=== PATIENT | male | born 1975 | race Caucasian/White ===

== ENCOUNTER 2018-02-09 05:28 | Emergency (ER) | payer BC ==
[2018-02-09 05:59] LABS: Urine Blood NEGATIVE (NEG); Urine Glucose NEGATIVE (NEG); Urine Protein 1+ (NEG)
[2018-02-09 06:38] LABS: Absolute Lymphocytes (CBC) 0.7 K/uL (0.7-4.9); Absolute Monocytes 0.1 K/uL (0.1-1.3); Absolute Neutrophil 6.8 K/uL (1.8-8.0); Basophils % 0.3 % (0-1.3); Eosinophils % 0.1 % (0-4.4); Hematocrit 54.2 % (39.6-49.0); Lymphocytes % 9.1 % (15.3-44.8); MCH 28.7 pg (27.0-35.0); MCV 85.3 fL (80-100); MPV 8.7 fL (7.6-11.3); Monocytes % 1.1 % (3.3-12.3); RBC Red Blood Cell Count 6.35 M/uL (4.33-5.43)
[2018-02-09 06:43] LABS: Protime INR 1.09
[2018-02-09 06:53] LABS: Albumin 4.6 g/dL (3.2-5.5); Bilirubin Direct 0.1 mg/dL (0-0.2); Bilirubin Total 0.8 mg/dL (0.3-1.2); Magnesium 1.7 mg/dL (1.8-2.5); Protein, Total 7.8 g/dL (6.0-8.3)
[2018-02-09 06:57] LABS: CKMB Creatine Kinase MB 1.2 ng/ml (0.3-4.0)
[2018-02-09] MEDS ORDERED: NA CHLORIDE 0.9% 1,000 ML ONE (07:08)
[2018-02-09 07:10] LABS: Potassium 2.9 mEq/L (3.6-5.0)
[2018-02-09] MEDS ORDERED: MAGNESIUM SULFATE 1 gm IVPB 1 GM/100 ML BAG IV ONE (07:22)
[2018-02-09 07:28] LABS: Barbiturates NEGATIVE; Benzodiazepines NEGATIVE; Cocaine NEGATIVE; METHAMPHETAM NEGATIVE; Opiates NEGATIVE; Phencyclidine NEGATIVE; THC Cannibis NEGATIVE
--- NOTE | 2018-02-09 07:54 | RAD REPORT ---
EXAM DESCRIPTION: Eliana Single View02/09/2018 6:15 am CLINICAL HISTORY: Chest pain COMPARISON: none FINDINGS: The lungs appear clear of acute infiltrate. The heart is normal size IMPRESSION: No acute abnormalities displayed
[2018-02-09] MEDS ORDERED: NS KCL 20MEQ 1,000 ML IV ONE (07:59)
[2018-02-09] MEDS ORDERED: POTASSIUM 25 MEQ EFFERV TAB ONE (07:59)
--- NOTE | 2018-02-09 08:16 | RAD REPORT ---
EXAM DESCRIPTION: CT - Head Brain Wo Cont - 02/09/2018 6:51 am CLINICAL HISTORY: Alteration of consciousness/leg numbness/pain COMPARISON: None. TECHNIQUE: Computed axial tomography of the head was obtained. IV contrast was not requested. All CT scans are performed using dose optimization technique as appropriate and may include automated exposure control or mA/KV adjustment according to patient size. FINDINGS: An intracranial bleed is not seen . The ventricles are normal in caliber. No extra-axial fluid collection is noted. Fluid within the sinuses/ mastoids is not seen. IMPRESSION: No acute intracranial abnormality is seen. If patient's symptoms persist MRI of the bra in would be recommended.
[2018-02-09 08:37] LABS: Blood Morphology Comment NOT SEEN (NOT SEEN); Platelet Estimate ADEQ; Platelets, Giant FEW; Urine White Blood Cell Casts OK
[2018-02-09] MEDS ORDERED: ACETAMINOPHEN 500 MG TAB ONE (09:51)
[2018-02-09 11:36] LABS: Hematocrit 52.5 % (39.6-49.0); MCH 28.6 pg (27.0-35.0); MPV 8.7 fL (7.6-11.3); RBC Red Blood Cell Count 6.17 M/uL (4.33-5.43)
[2018-02-09 11:58] LABS: BUN Blood Urea Nitrogen 8 mg/dL (6-20); Bicarbonate 24 mEq/L (21-31); Glomerular Filtration Rate > 90 mL/min (=/>90); Glucose Level 135 mg/dL (65-120); Sodium Level 139 mEq/L (135-145)
--- NOTE | 2018-02-09 12:07 | ER ---
Nurse's Notes [facility] Name: Sumeet Reynoso Age: 42 yrs Sex: Male : 1975 Arrival Date: 02/09/2018 Time: 05:29 Bed 17 Private MD: Diagnosis: Weakness;Hypokalemia Presentation: 02/09 05:30 Presenting complaint: Patient states: that he was sick on and went to [facility]. Was given Tamiflu x 2 days then told to start Prednisone and Singulair (both of which he started on Thursday). Yesterday he started to have generalized weakness but then this am at 0445 he woke up and says that both arms and legs were so weak that he could not button his pants or dress himself. Transition of care: patient was not received from another setting of care. No acute neurological deficit is noted. Pre-hospital glucose is not applicable to this patient. Onset of symptoms was February 08, 2018. Care prior to arrival: None. 05:30 Method Of Arrival: Ambulatory 05:30 Acuity: DONELL 3 Triage Assessment: 05:55 The onset of the patients symptoms was February 08, 2018 at 10:00. General: Appears fc uncomfortable, Behavior is calm, cooperative, appropriate for age. Pain: Denies pain. EENT: Reports nasal congestion. Neuro: Level of Consciousness is awake, alert, obeys commands, Oriented to person, place, time, situation, Moves all extremities. Full function Weakness in bilateral arm(s) leg(s) Gait is steady, Speech is normal, Facial symmetry appears normal, Reports weakness in right arm, left arm, right leg and left leg. Cardiovascular: Denies chest pain, Heart tones S1 S2 Capillary refill < 3 seconds. Respiratory: Airway is patent Respiratory effort is even, unlabored, Respiratory pattern is regular, symmetrical. GI: No deficits noted. : No deficits noted. Derm: Skin is pink, warm \\T\\ dry. Musculoskeletal: Circulation, motion, and sensation intact. Capillary refill < 3 seconds, Range of motion: intact in all extremities, Reports weakness in right arm, left arm, right leg and left leg. Stroke Activation: Symptom onset > 6 hours Physician: Stroke Attending; Name: ; Notified At: ; Arrived At: Physician: Chief Stroke Resident; Name: ; Notified At: ; Arrived At: Physician: Stroke Resident; Name: ; Notified At: ; Arrived At: Physician: ED Attending; Name: ; Notified At: ; Arrived At: Physician: ED Resident; Name: ; Notified At: ; Arrived At: Historical: - Allergies: 05:54 No Known Allergies; fc - Home Meds: 05:54 Norvasc 5 mg Oral tab 1 tab twice a day [Active]; Aciphex 20 mg Oral TbEC 1 tab once fc daily [Active]; - PMHx: 05:54 GERD; Hypertension; fc - PSHx: 05:54 Hernia repair; shoulder surg; Vasectomy; fc - Immunization history:: Last tetanus immunization: up to date Flu vaccine is up to date. - Social history:: Smoking status: Patient uses tobacco products, chewing tobacco. Screenin:30 Abuse screen: Denies threats or abuse. Nutritional screening: No deficits noted. fc Tuberculosis screening: No symptoms or risk factors identified. Fall Risk None identified. Assessment: 06:37 Patient has been NPO before screening. The patient is alert, and able to follow wh commands. The patient does not exhibit slurred or garbled speech. The patient is not exhibiting difficulty speaking. The patient does not exhibit difficulty understanding words. The patient is able to swallow own secretions with no drooling or need for suction. Patient tolerated one teaspoon of water. No drooling, immediate coughing, gurgling, or clearing of the throat was noted. The patient tolerated 90mL of water. No drooling, immediate coughing, gurgling, or clearing of the throat was noted. The patient passed the bedside swallow screening. Oral medications may be given as ordered. Contact Physician for further diet orders. 06:40 Provider notified of bedside swallow screening results: Bertram WILD. wh 06:42 General: Appears in no apparent distress. comfortable, Behavior is calm, cooperative, wh appropriate for age. Pain: Denies pain. Neuro: Level of Consciousness is awake, alert, obeys commands, Oriented to person, place, time, situation, Emergency Room Physician are equal bilaterally Moves all extremities. Full function Reports weakness since yesterday. Cardiovascular: Denies chest pain, Heart tones S1 S2 Capillary refill < 3 seconds. Respiratory: Airway is patent Respiratory effort is even, unlabored, Respiratory pattern is regular, symmetrical, Breath sounds are clear bilaterally. GI: Abdomen is flat, non-distended, Abd is soft and non tender X 4 quads. : No signs and/or symptoms were reported regarding the genitourinary system. EENT: No signs and/or symptoms were reported regarding the EENT system. Derm: Skin is intact, is healthy with good turgor, Skin is pink, warm \\T\\ dry. normal. Musculoskeletal: Range of motion: intact in all extremities. 07:31 T-PA (Activase) Screening: Contraindications: Patient reports onset of signs and ch symptoms of stroke greater than 6 hours ago: Coma, severe obtundation, fixed pupils, deviation, or complete hemiplegia: No. Rapidly improving condition or minor deficit: Yes. Reassessment: Patient appears in no apparent distress at this time. No changes from previously documented assessment. Patient and/or family updated on plan of care and expected duration. Pain level reassessed. Patient is alert, oriented x 3, equal unlabored respirations, skin warm/dry/pink. General: Appears in no apparent distress. comfortable. Neuro: Level of Consciousness is awake, alert, obeys commands, Oriented to person, place, time, situation, Emergency Room Physician are equal bilaterally Moves all extremities. Full function pt states he feels like his muscles are "", just dont respond right. feels like he would if he had a very hard weight lifting session or something. pt denies any strenuous activities latlely. Gait is steady, Speech is normal, Facial symmetry appears normal, Facial symmetry: tongue is midline, Pupils are PERRLA. Cardiovascular: Heart tones S1 S2 present Capillary refill < 3 seconds in bilateral fingers toes Clubbing of nail beds is absent Rhythm is sinus rhythm. Respiratory: Airway is patent Respiratory effort is even, unlabored, Respiratory pattern is regular, Breath sounds are clear bilaterally. EENT: Reports nasal congestion nasal discharge. 08:01 Reassessment: Patient appears in no apparent distress at this time. Patient and/or ch family updated on plan of care and expected duration. Pain level reassessed. Patient is alert, oriented x 3, equal unlabored respirations, skin warm/dry/pink. Patient states feeling better. Patient states symptoms have improved. 09:20 Reassessment: Patient appears in no apparent distress at this time. Patient and/or ch family updated on plan of care and expected duration. Pain level reassessed. Patient is alert, oriented x 3, equal unlabored respirations, skin warm/dry/pink. pt states he feels a little better. pt ambulated to restroom, and around nurses station. 10:15 Reassessment: Patient appears in no apparent distress at this time. Patient and/or ch family updated on plan of care and expected duration. Pain level reassessed. second set of labs drawn now. Patient states feeling better. Patient states symptoms have improved. 11:19 Reassessment: Patient appears in no apparent distress at this time. recollect of green top blood drawn now. repeat cbc drawn due to pt elevated H and H. Vital Signs: 05:30 BP 168 / 100; Pulse 81; Resp 18; Temp 97.5(O); Pulse Ox 96% on R/A; Weight 92.99 kg fc (R); Height 5 ft. 9 in. (175.26 cm) (R); Pain 0/10; 06:44 BP 143 / 96; Pulse 74; Resp 18; Pulse Ox 95% on R/A; wh 07:31 BP 131 / 79; Pulse 83; Resp 18; Temp 97.8; Pulse Ox 99% ; Pain 0/10; ch 09:15 BP 153 / 105; Pulse 93; Resp 17; Pulse Ox 97% on R/A; mh5 10:04 BP 142 / 97; Pulse 90; Resp 15; Pulse Ox 96% on R/A; mh5 10:50 BP 149 / 105; Pulse 92; Resp 15; Pulse Ox 96% on R/A; mh5 12:21 BP 143 / 85; Pulse 93; Resp 21; Temp 98; Pulse Ox 96% ; dm5 05:30 Body Mass Index 30.27 (92.99 kg, 175.26 cm) NIH Stroke Scale Scores: 06:37 NIHSS Score: 0 ED Course: 05:29 Patient arrived in ED. ds1 05:30 Arm band placed on left wrist. Patient placed in an exam room, on a stretcher. fc 05:30 Patient has correct armband on for positive identification. Bed in low position. Call light in reach. nurse monitoring on. Pulse ox on. NIBP on. 05:30 No provider procedures requiring assistance completed. 05:39 Alysa Dillon is Primary Nurse. 05:51 Triage completed. 06:11 Bertram Carpenter PA is PHCP. cp 06:11 Tyrell Caldwell MD is Attending Physician. cp 06:14 Inserted saline lock: 20 gauge in right antecubital area, using aseptic technique. Blood collected. 06:15 XRAY Chest (1 view) In Process Unspecified. EDMS 06:25 CT Head Brain wo Cont In Process Unspecified. EDMS 07:31 No apparent distress. Resting quietly. ch 07:36 Rom Andino MD is Attending Physician. cp 08:01 Primary Nurse role handed off by Alysa Dillon ch 08:01 Nasrin Thomason, LUKE is Primary Nurse. ch 12:25 No apparent distress. Resting quietly. ch 12:25 IV discontinued, intact, bleeding controlled, No redness/swelling at site. Pressure ch dressing applied. Administered Medications: 06:51 Drug: NS 0.9% 1000 ml Route: IV; Rate: 1 bolus; Site: right antecubital; 07:40 Follow up: IV Status: Completed infusion; IV Intake: 1000ml 07:05 Drug: Magnesium Sulfate 1 grams Route: IVPB; Infused Over: 1 hrs; Site: right ch antecubital; 07:38 Drug: Potassium Chloride 20 mEq Route: IV; Rate: calculated rate; Site: right ch antecubital; 10:00 Follow up: IV Status: Completed infusion; IV Intake: 1000ml ch 07:38 Drug: Potassium Effervescent Tablet 50 mEq Route: PO; 10:15 Follow up: Response: No adverse reaction Point of Care Testing: Blood Glucose: 06:14 Blood Glucose: 137 mg/dL; Ranges: Intake: 07:40 IV: 1000ml; Total: 1000ml. 10:00 IV: 1000ml; Total: 2000ml. Outcome: 12:06 Discharge ordered by . cp 12:25 Discharged to home ambulatory, with family. ch 12:25 Condition: improved 12:25 Discharge instructions given to patient, family, Instructed on discharge instructions, follow up and referral plans. medication usage, Demonstrated understanding of instructions, follow-up care, medications. 12:31 Patient left the ED. iw NIH Stroke Scale - NIH Stroke Score Date: 02/09/2018 Time: 06:37 Total Score = 0 1a. Level of Consciousness (LOC) - 0(Alert) 1b. Level of Consciousness (LOC) (Year \\T\\ Age) - 0(Both) 1c. LOC Commands (Open \\T\\ Closes Eyes/Gse Mechanic) - 0(Both) 2. Best Gaze (Lateral Gaze Paresis) - 0(Normal) 3. Visual Field Loss - 0(No visual loss) 4. Facial Palsy - 0(Normal) 5a. Left Arm: Motor (10-second hold) - 0(No drift) 5b. Right Arm: Motor (10-second hold) - 0(No drift) 6a. Left Leg: Motor (5-second hold - always test supine) - 0(No drift) 6b. Right Leg: Motor (5-second hold - always test supine) - 0(No drift) 7. Limb Ataxia (finger/nose \\T\\ heel/fernandez - test with eyes open) - 0(Absent) 8. Sensory Loss (pinprick arms/legs/face) - 0(Normal) 9. Best Language: Aphasia (description/naming/reading) - 0(No aphasia) 10. Dysarthria (speech clarity - read or repeat words) - 0(Normal) 11. Extinction and Inattention (visual/tactile/auditory/spatial/personal) - 0(No abnormality) Initials: Signatures: Dispatcher [employer] EDNasrin Shane RN RN ch Markwardt, Deana, RN RN dm5 June Wiseman RN Chela Medel Irene, RN RN iw Page, Corey, PA PA cp Martinez, Maria [facility] Alysa Dillon Corrections: (The following items were deleted from the chart) 05:57 05:54 The onset of the patients symptoms was more than six hours ago [place]
--- NOTE | 2018-02-09 12:07 | EDPHYS ---
Physician Documentation [facility] Name: Sumeet Reynoso Age: 42 yrs Sex: Male : 1975 Arrival Date: 02/09/2018 Time: 05:29 Bed 17 Private MD: ED Physician Rom Andino HPI: 02/09 06:36 This 42 yrs old Male presents to ER via Ambulatory with complaints of cp Weakness. 06:36 Onset: The symptoms/episode began/occurred yesterday. cp 06:36 The patient presents to the emergency department with weakness of the right arm, left cp arm, right leg and left leg, difficult walking, the patient cannot walk. 06:36 Associated signs and symptoms: Pertinent negatives: altered mental status, dizziness, cp fever, headache, neck stiffness, syncope, blurred vision, visual field changes. Severity of symptoms: in the emergency department the symptoms are unchanged despite home interventions. Patient's baseline: Neuro: alert and fully oriented, Motor: no deficits, Ambulation: walks without assistance, Speech: normal. Patient reports he started feeling weak yesterday. Today weakness is worse, caused him to fall this morning after awakening and he was unable to dress himself. Patient reports he was treated for influenza with tamiflu last week and is currently taking prednisone for sinus symptoms. Historical: - Allergies: 05:54 No Known Allergies; fc - Home Meds: 05:54 Norvasc 5 mg Oral tab 1 tab twice a day [Active]; Aciphex 20 mg Oral TbEC 1 tab once fc daily [Active]; - PMHx: 05:54 GERD; Hypertension; fc - PSHx: 05:54 Hernia repair; shoulder surg; Vasectomy; fc - Immunization history:: Last tetanus immunization: up to date Flu vaccine is up to date. - Social history:: Smoking status: Patient uses tobacco products, chewing tobacco. ROS: 06:40 Constitutional: Negative for body aches, chills, fever, poor PO intake. cp 06:40 Eyes: Negative for injury, pain, redness, and discharge. cp 06:40 ENT: Negative for drainage from ear(s), ear pain, sore throat, difficulty swallowing, difficulty handling secretions. 06:40 Cardiovascular: Negative for chest pain, edema, palpitations. 06:40 Respiratory: Negative for cough, shortness of breath, wheezing. 06:40 Abdomen/GI: Negative for abdominal pain, nausea, vomiting, and diarrhea, black/tarry stool, rectal bleeding. 06:40 Back: Negative for pain at rest, pain with movement, radiated pain. 06:40 : Negative for urinary symptoms. 06:40 Neuro: Positive for weakness, of the right arm, left arm, right leg and left leg, Negative for altered mental status, dizziness, headache, syncope, near syncope. 06:40 All other systems are negative. Exam: 06:00 ECG was reviewed by the Attending Physician. cp 06:45 Constitutional: The patient appears in no acute distress, alert, awake, cp non-diaphoretic, non-toxic, well developed, well nourished. 06:45 Head/Face: Normocephalic, atraumatic. Eyes: Pupils equal round and reactive to light, cp extra-ocular motions intact. Lids and lashes normal. Conjunctiva and sclera are non-icteric and not injected. Cornea within normal limits. Periorbital areas with no swelling, redness, or edema. ENT: Nares patent. No nasal discharge, no septal abnormalities noted. Tympanic membranes are normal and external auditory canals are clear. Oropharynx with no redness, swelling, or masses, exudates, or evidence of obstruction, uvula midline. Mucous membranes moist. Chest/axilla: Normal chest wall appearance and motion. Nontender with no deformity. No lesions are appreciated. 06:45 Cardiovascular: Rate: normal, Rhythm: regular, Pulses: Pulses are 2+ in right radial artery and left radial artery. Edema: is not appreciated, JVD: is not appreciated. 06:45 Respiratory: the patient does not display signs of respiratory distress, Respirations: normal, no use of accessory muscles, no retractions, no splinting, no tachypnea, labored breathing, is not present, Breath sounds: are clear throughout, no decreased breath sounds, no stridor, no wheezing. 06:45 Abdomen/GI: Inspection: abdomen appears normal, Bowel sounds: active, all quadrants, Palpation: soft, in all quadrants, mild abdominal tenderness, in all quadrants. 06:45 Back: ROM is normal. 06:45 Musculoskeletal/extremity: Exam is negative for calf tenderness, decreased range of motion, deformity, injury. 06:45 Skin: cellulitis, is not appreciated, no rash present. 06:45 Neuro: Orientation: to person, place \T\ time. Mentation: is normal, Cranial nerves: cp grossly normal, Cerebellar function: Romberg testing is negative, normal finger to nose testing, Motor: moves all fours, general weakness w/o focal deficits, Sensation: no obvious gross deficits. Vital Signs: 05:30 BP 168 / 100; Pulse 81; Resp 18; Temp 97.5(O); Pulse Ox 96% on R/A; Weight 92.99 kg fc (R); Height 5 ft. 9 in. (175.26 cm) (R); Pain 0/10; 06:44 BP 143 / 96; Pulse 74; Resp 18; Pulse Ox 95% on R/A; wh 07:31 BP 131 / 79; Pulse 83; Resp 18; Temp 97.8; Pulse Ox 99% ; Pain 0/10; ch 09:15 BP 153 / 105; Pulse 93; Resp 17; Pulse Ox 97% on R/A; mh5 10:04 BP 142 / 97; Pulse 90; Resp 15; Pulse Ox 96% on R/A; mh5 10:50 BP 149 / 105; Pulse 92; Resp 15; Pulse Ox 96% on R/A; mh5 12:21 BP 143 / 85; Pulse 93; Resp 21; Temp 98; Pulse Ox 96% ; dm5 05:30 Body Mass Index 30.27 (92.99 kg, 175.26 cm) NIH Stroke Scale Scores: 06:37 NIHSS Score: 0 MDM: 06:11 Patient medically screened. cp 10:10 ED course: VSS. Patient reports he is feeling better and weakness has improved. cp 12:03 Data reviewed: vital signs, nurses notes, lab test result(s), EKG, radiologic studies, cp CT scan, plain films. 12:03 Test interpretation: by ED physician or midlevel provider: ECG, plain radiologic cp studies. Response to treatment: the patient's symptoms have markedly improved after treatment. 02/09 05:47 Order name: Basic Metabolic Panel; Complete Time: 07:23 02/09 07:23 Interpretation: Normal except: GLUC 152; GFR 78; K 2.9. cp 02/09 05:47 Order name: BNP; Complete Time: 07:07 02/09 07:07 Interpretation: Reviewed. cp 02/09 05:47 Order name: CBC with Diff; Complete Time: 08:43 02/09 06:59 Interpretation: Normal except: RBC 6.35; HGB 18.2; HCT 54.2; POPEYE% 89.4; LYM% 9.1; MN% cp 1.1. 02/09 05:47 Order name: Ckmb; Complete Time: 07:23 02/09 05:47 Order name: CPK; Complete Time: 07:23 02/09 05:47 Order name: LFT's; Complete Time: 07:23 02/09 07:23 Interpretation: Reviewed. 02/09 05:47 Order name: Magnesium; Complete Time: 07:23 02/09 07:00 Interpretation: Abnormal: MG 1.7. 02/09 05:47 Order name: PT-INR; Complete Time: 06:59 02/09 07:00 Interpretation: PT 12.9; Reviewed. 02/09 05:47 Order name: Ptt, Activated; Complete Time: 06:59 02/09 05:47 Order name: Troponin (emerg Dept Use Only); Complete Time: 06:59 02/09 05:47 Order name: Urine Dipstick--Ancillary (enter results); Complete Time: 06:12 rg2 02/09 07:33 Interpretation: Normal except: UPROT 1+. cp 02/09 06:35 Order name: UDS; Complete Time: 07:32 cp 02/09 07:32 Interpretation: Reviewed. 02/09 06:35 Order name: Influenza Screen (a \T\ B); Complete Time: 07:10 cp 02/09 08:37 Order name: CBC Smear Scan; Complete Time: 08:43 EDMS 02/09 05:47 Order name: XRAY Chest (1 view); Complete Time: 08:43 02/09 08:43 Interpretation: Report review. 02/09 05:47 Order name: EKG; Complete Time: 05:48 02/09 05:47 Order name: Cardiac monitoring; Complete Time: 05:58 02/09 05:47 Order name: EKG - Nurse/Tech; Complete Time: 05:58 02/09 05:47 Order name: IV Saline Lock; Complete Time: 06:13 02/09 05:47 Order name: Labs collected and sent; Complete Time: 06:14 02/09 05:47 Order name: O2 Per Protocol; Complete Time: 05:58 02/09 05:47 Order name: O2 Sat Monitoring; Complete Time: 05:57 02/09 05:47 Order name: Urine Dipstick-Ancillary (obtain specimen); Complete Time: 05:57 02/09 05:47 Order name: CT Head Brain wo Cont; Complete Time: 08:43 02/09 08:43 Interpretation: Report reviewed. 02/09 09:00 Order name: BMP: minutes after administration of IV potassium; Complete Time: 11:59 02/09 11:59 Interpretation: Normal except: K 5.0; GLUC 135. 02/09 11:19 Order name: CBC w/o diff; Complete Time: 11:59 02/09 12:00 Interpretation: Normal except: WBC 14.1; RBC 6.17; HCT 52.5. EC:00 Rate is 76 beats/min. Rhythm is regular. RI interval is normal. QRS interval is normal. QT interval is normal. T waves are Flattened in leads V4, V5, V6. Interpreted by me. Reviewed by me. Administered Medications: 06:51 Drug: NS 0.9% 1000 ml Route: IV; Rate: 1 bolus; Site: right antecubital; 07:40 Follow up: IV Status: Completed infusion; IV Intake: 1000ml 07:05 Drug: Magnesium Sulfate 1 grams Route: IVPB; Infused Over: 1 hrs; Site: right antecubital; 07:38 Drug: Potassium Chloride 20 mEq Route: IV; Rate: calculated rate; Site: right antecubital; 10:00 Follow up: IV Status: Completed infusion; IV Intake: 1000ml 07:38 Drug: Potassium Effervescent Tablet 50 mEq Route: PO; 10:15 Follow up: Response: No adverse reaction Point of Care Testing: Blood Glucose: 06:14 Blood Glucose: 137 mg/dL; Ranges: Critical Glucose Levels:Adult <50 mg/dl or >400 mg/dl <40 mg/dl or >180 mg/dl Disposition: 14:36 Co-signature as Attending Physician, Rom Andino MD. rn Disposition: 02/09/18 12:06 Discharged to Home. Impression: Weakness, Hypokalemia. - Condition is Stable. - Discharge Instructions: Potassium Content of Foods, Hypomagnesemia, Weakness, Hypokalemia. - Work release form, Family Work Release, Medication Reconciliation Form, Thank You Letter, Antibiotic Education, Prescription Opioid Use form. - Follow up: Private Physician; When: Tomorrow; Reason: Recheck today's complaints, recheck serum potassium. - Problem is new. - Symptoms have improved. NIH Stroke Scale - NIH Stroke Score Date: 02/09/2018 Time: 06:37 Total Score = 0 1a. Level of Consciousness (LOC) - 0(Alert) 1b. Level of Consciousness (LOC) (Year \T\ Age) - 0(Both) 1c. LOC Commands (Open \T\ Closes Eyes/Guest Relations Officer) - 0(Both) 2. Best Gaze (Lateral Gaze Paresis) - 0(Normal) 3. Visual Field Loss - 0(No visual loss) 4. Facial Palsy - 0(Normal) 5a. Left Arm: Motor (10-second hold) - 0(No drift) 5b. Right Arm: Motor (10-second hold) - 0(No drift) 6a. Left Leg: Motor (5-second hold - always test supine) - 0(No drift) 6b. Right Leg: Motor (5-second hold - always test supine) - 0(No drift) 7. Limb Ataxia (finger/nose \T\ heel/fernandez - test with eyes open) - 0(Absent) 8. Sensory Loss (pinprick arms/legs/face) - 0(Normal) 9. Best Language: Aphasia (description/naming/reading) - 0(No aphasia) 10. Dysarthria (speech clarity - read or repeat words) - 0(Normal) 11. Extinction and Inattention (visual/tactile/auditory/spatial/personal) - 0(No abnormality) Initials: Signatures: Dispatcher [employer] Nasrin Morrison RN RN ch Chretien, Felicia, RN RN fc Williams, Irene, RN RN iw Nieto, Roman, MD MD rn Page, Corey, PA PA cp Habalo, Winsy wh Corrections: (The following items were deleted from the chart) 07:23 07:23 Normal except: GLUC 152; GFR 78. cp cp
--- NOTE | 2018-02-09 16:28 | EKG ---
Test Date: 2018-02-09 Test Time: 05:54:12 Mirror Department Supervisor: MIRZA MEASUREMENT RESULTS: Intervals: Rate: 76 CO: 156 QRSD: 84 QT: 340 QTc: 382 [place]: P: 55 CO: 156 QRS: 75 T: 16 INTERPRETIVE STATEMENTS: Normal sinus rhythm Nonspecific ST and T wave abnormality Abnormal ECG No previous ECG available for comparison Electronically Signed On 02-09-18 16:25:08 CDT by Tad Barragan
== END 2018-02-09 12:31 | disposition home or self-care (01) ==
LOC: ER 05:28
DX: E87.6 Hypokalemia (principal); I10 Essential (primary) hypertension; K21.9 Gastro-esophageal reflux disease without esophagitis; Z72.0 Tobacco use
CPT/HCPCS: 36415; 70450; 71045; 80048; 80076; 80307; 81003; 82550; 82553; 82962; 83735; 83880; 84484; 85025; 85027; 85610; 85730; 87804; 93005; 96361; 96365; 96366; 96375; 99284; J3475; J7030

== ENCOUNTER 2018-09-09 18:51 | Emergency (ER) | payer BC ==
--- OUTSIDE RECORDS SUMMARY | 2018-09-09 18:53 | XMS REPORT | Continuity of Care Document ---
:1975 Author Organization Interface Problems Problem Status Onset Classification Date Comments Source Date Reported BDDC - F/U Active [address] BDDC-COLON Active [facility] SCREENING [address] [place] [address] ACID REFLUX Active [facility] THROAT CLOSES [address] [place] [address] WHEN EATING Center High blood Active Problem 01/21/2016 [facility] pressure [facility] IBS (<span Active Problem 01/21/2016 [facility] ID="[id number] Medical 477">[facility] d</span>) Medications Medication Details Route Status Patient Ordering Order Source Instructions Provider Date riFAXimin 550 mg oral 550 mg=1 Active [facility] tablet tab, PO, 016 Medical TID, # 42 Center tab, 0 Refill(s) , Pharmacy: [id number] GoLYTELY oral powder 240 mL, Active [facility] for reconstitution PO, 016 Medical Q10Min, # Center 1 ea, 0 Refill(s) , Pharmacy: [id number] pantoprazole 40 mg =1 Pack, Active [facility] oral granule PO, 016 Medical Daily, # Center 30 ea, 0 Refill(s) Amlodipine 10 MG Oral 10 mg=1 Active [facility] Tablet [Norvasc] tab, PO, 016 Medical Daily, 0 Center Refill(s) Hydrochlorothiazide 25 mg, Active [facility] PO, 016 Medical Daily, 0 Center Refill(s) lisinopril 40 mg oral 40 mg=1 Active [facility] tablet tab, PO, 016 Medical Daily, 0 Center Refill(s) Allergies, Adverse Reactions, Alerts Substance Category Reaction Severity Reaction Status Date Comments Source type Reported Immunizations Immunization Date Given Site Status Last Updated Comments Source Results Order Results Value Reference Date Interpretation Comments Source Name Range Vital Signs Vital Sign Value Date Comments Source BMI Calculated 31.24 01/18/2016 [facility] Weight 95.966 01/18/2016 [facility] Height 175.26 cm 01/18/2016 [facility] Systolic (mm Hg) 124 01/18/2016 [facility] Diastolic (mm Hg) 84 01/18/2016 [facility] Respitory Rate 74 01/18/2016 [facility] BMI Calculated 31.15 12/11/2015 [facility] Weight 95.682 12/11/2015 [facility] Systolic (mm Hg) 121 12/11/2015 [facility] Diastolic (mm Hg) 83 12/11/2015 [facility] Temperature Oral (F) 97.9 F 12/11/2015 [facility] Heart Rate 74 12/11/2015 [facility] Height 175.26 cm 12/11/2015 [facility] Encounters Location Location Encounter Encounter Reason Attending ADM DC Status Source Details Type Number For Provider Date Date Visit [facility] Outpatient [id number] Non 12/11 12/12 [facility] Physician /2015 [facility] [id number] Shiva 01/03 01/03 [facility] Outpatient Laura /2015 [facility] Outpatient [id number] Shiva 01/17 01/18 [facility] Laura /2015 [facility] Procedures Procedure Code Date Perfomer Comments Source Hernia repair [id number] [facility]
--- OUTSIDE RECORDS SUMMARY | 2018-09-09 18:53 | XMS REPORT | Summary of Care ---
:1975 Author Organization [facility] Address [address] [place], [place] [address]- Encounter HQ Encntr_alidee(FIN) [id number] Date(s): 01/03/16 - 01/03/16 [facility] [address] [place] [address] [employer] Discharge Disposition: Home Attending Physician: Shiva Sanchez MD Referring Physician: Shiva Sanchez MD Vital Signs No data available for this section Problem List Condition Effective Dates Status Health Status Informant High blood pressure(Confirmed) Active IBS (irritable bowel Active syndrome)(Confirmed) Allergies, Adverse Reactions, Alerts Substance Reaction Severity Status NKDA Active Medications No data available for this section Results No data available for this section Immunizations No data available for this section Procedures Procedure Date Related Diagnosis Body Site Hernia repair Social History Social History Type Response Smoking Status Never smoker; Exposure to Tobacco Smoke None; Cigarette Smoking Last 365 Days No; Reg Smoking Cessation Counseling No Assessment and Plan No data available for this section
--- OUTSIDE RECORDS SUMMARY | 2018-09-09 18:53 | XMS REPORT | Summary of Care ---
:1975 Author Organization [facility] Address [address] [address]- Encounter HQ Monica_kendra(FIN) [id number] Date(s): 01/18/16 - 01/18/16 [facility] [address] [facility] [address] [phone] Discharge Disposition: Home Attending Physician: Shiva Sanchez MD Referring Physician: Shiva Sanchez MD Vital Signs Most recent to oldest [Reference Range]: 1 Height 175.26 cm (01/18/16 9:49 AM) Blood Pressure [90-140/60-90 mmHg] 124/84 mmHg (01/18/16 9:49 AM) Respiratory Rate [14-20 BRMIN] 74 BRMIN *HI* (01/18/16 9:49 AM) Weight 95.966 kg (01/18/16 9:49 AM) Body Mass Index 31.24 m2 (01/18/16 9:49 AM) Problem List Condition Effective Dates Status Health Status Informant High blood pressure(Confirmed) Active IBS (irritable bowel Active syndrome)(Confirmed) Allergies, Adverse Reactions, Alerts Substance Reaction Severity Status NKDA Active Medications riFAXimin 550 mg oral tablet 550 mg=1 tab, PO, TID, # 42 tab, 0 Refill(s), Pharmacy: [facility] #[id number] Start Date: 01/18/16 Stop Date: 02/01/16 Status: Ordered Results No data available for this section [...]
--- OUTSIDE RECORDS SUMMARY | 2018-09-09 18:53 | XMS REPORT | Summary of Care ---
:1975 Author Organization [facility] Address [address] [place], [place] [address]- Encounter HQ Collette(FIN) [id number] Date(s): 12/11/15 - 12/11/15 [facility] [address] [place] [address] [employer] Discharge Disposition: Home Attending Physician: Diego Mendoza MD Referring Physician: Physician, Non Associated MD Vital Signs Most recent to oldest [Reference Range]: 1 Height 175.26 cm (12/11/15 1:12 PM) Temperature Oral [96.4-99.1 DegF] 97.9 DegF (12/11/15 1:12 PM) Blood Pressure [90-140/60-90 mmHg] 121/83 mmHg (12/11/15 1:12 PM) Peripheral Pulse Rate [60-100 bpm] 74 bpm (12/11/15 1:12 PM) Weight 95.682 kg (12/11/15 1:12 PM) Body Mass Index 31.15 m2 (12/11/15 1:12 PM) Problem List Condition Effective Dates Status Health Status Informant High blood pressure(Confirmed) Active IBS (irritable bowel Active syndrome)(Confirmed) Allergies, Adverse Reactions, Alerts Substance Reaction Severity Status NKDA Active Medications GoLYTELY oral powder for reconstitution 240 mL, PO, Q10Min, # 1 ea, 0 Refill(s), Pharmacy: [facility]/pharm[facility] #[id number] Start Date: 12/11/15 Stop Date: 12/12/15 Status: Orderedhydrochlorothiazide 25 mg, PO, Daily, 0 Refill(s) Start Date: 12/11/15 Status: Orderedlisinopril 40 mg oral tablet 40 mg=1 tab, PO, Daily, 0 Refill(s) Start Date: 12/11/15 Status: OrderedNorvasc 10 mg oral tablet 10 mg=1 tab, PO, Daily, 0 Refill(s) Start Date: 12/11/15 Status: Orderedpantoprazole 40 mg oral granule =1 Pack, PO, Daily, # 30 ea, 0 Refill(s) Start Date: 12/11/15 Status: Ordered Results No data available for [...]
[2018-09-09] MEDS ORDERED: NA CHLORIDE 0.9% 1,000 ML ONE ×2 (20:06→21:32)
[2018-09-09 20:17] LABS: Absolute Lymphocytes (CBC) 1.6 K/uL (0.7-4.9); Absolute Monocytes 1.1 K/uL (0.1-1.3); Absolute Neutrophil 11.9 K/uL (1.8-8.0); Basophils % 0.6 % (0-1.3); Eosinophils % 0.7 % (0-4.4); Hematocrit 48.8 % (39.6-49.0); Lymphocytes % 10.7 % (15.3-44.8); MCH 27.8 pg (27.0-35.0); MCV 83.4 fL (80-100); MPV 8.2 fL (7.6-11.3); Monocytes % 7.2 % (3.3-12.3); RBC Red Blood Cell Count 5.86 M/uL (4.33-5.43)
[2018-09-09 20:21] LABS: Protime INR 1.03
--- NOTE | 2018-09-09 20:23 | RAD REPORT ---
EXAM DESCRIPTION: RAD - Chest Single View - 09/09/2018 7:50 pm CLINICAL HISTORY: Chest pain COMPARISON: February 09 TECHNIQUE: AP portable chest image was obtained 1943 hours . FINDINGS: Lungs are clear. Heart and vasculature are normal. No measurable pleural effusion and no p neumothorax. No acute bony abnormality seen. No acute aortic findings suspected. IMPRESSION: No acute cardiopulmonary process. No significant interval change.
[2018-09-09 20:59] LABS: Urine Blood NEGATIVE (NEG); Urine Glucose NEGATIVE (NEG); Urine Protein NEGATIVE (NEG)
[2018-09-09 21:11] LABS: ALT/SGPT 45 U/L (12-78); AST/SGOT 16 U/L (15-37); Alkaline Phosphatase 75 U/L (45-117); BUN Blood Urea Nitrogen 20 mg/dL (7-18); Bicarbonate 29 mmol/L (21-32); Bilirubin Direct 0.1 mg/dL (0-0.2); Bilirubin Total 0.3 mg/dL (0.2-1.0); Glucose Level 105 mg/dL (74-106); Lipase 220 U/L (73-393); Magnesium 2.3 mg/dL (1.8-2.4); NT PRO-BNP 8 pg/mL (<125); Potassium 3.7 mmol/L (3.5-5.1); Protein, Total 7.6 g/dL (6.4-8.2); Sodium Level 141 mmol/L (136-145); Troponin (Emerg Dept Use Only) < 0.02 ng/mL (0.0-0.045)
--- NOTE | 2018-09-09 21:52 | RAD REPORT ---
EXAM DESCRIPTION: CT - Head C Spine Cap Wo Con - 09/09/2018 9:30 pm CLINICAL HISTORY: Head, neck, chest and abdomen pain COMPARISON: CT head February 09 TECHNIQUE: Axial [address] head images were obtained. Axial [address] cervical spine images were obtain ed with sagittal and coronal reconstruction images reviewed. Axial 5 mm images of the chest, abdomen and pelvis were obtained. All CT scans are performed using dose optimization technique as appropriate and may include automated exposure control or mA/KV adjustment according to patient size. FINDINGS: No intracranial hemorrhage, mass or edema. No midline shift or abnormal fluid collection. Mastoid air cells and paranasal sinuses are clear. No skull fracture. No change from comparison. Cervical bodies are normal in height and alignment. No fracture or acute bone finding.No disk space n arrowing.No prevertebral soft tissue thickening or paraspinal mass.Central canal detail is inherently limited on CT imaging. CT chest shows no pneumothorax, pulmonary contusion or pleural fluid collection. No mediastinal hem atoma and the aorta and pulmonary arteries are unremarkable. No chest will mass or abnormal axillary finding. No displaced rib fracture or other significant bony finding. CT abdomen and pelvis show no injury to solid abdominal viscera. Gallbladder and biliary tree are unr emarkable. No bowel injury or significant finding. No free air, free fluid or abnormal stranding. No hernia, mass or bulky lymphadenopathy. No hydronephrosis or obstructing calculi of either kidney. Th ere is a 5 millimeter nonobstructing calcification mid right kidney. No bladder calculi. Bladder is p artially filled. No significant bony finding. IMPRESSION: No significant CT Head finding. No significant CT cervical spine finding. No significant CT Chest finding. No significant CT Abdomen and Pelvis finding.
--- NOTE | 2018-09-09 22:02 | ER ---
Nurse's Notes [facility] Name: Sumeet Reynoso Age: 42 yrs Sex: Male : 1975 Arrival Date: 09/09/2018 Time: 18:52 Bed 30 Private MD: Nagi Cutler B Diagnosis: Weakness;Elevated white blood cell count;Unspecified kidney failure-insufficency Presentation: 09/09 19:12 Presenting complaint: Patient states: "For a couple weeks now my whole body feels aj1 tingly. I can feel it in my neck and my arms and my legs." Denies headache. Denies unilateral weakness. States when this happens "it feels like my arms and legs are going to sleep on both sides". Transition of care: patient was not received from another setting of care. Onset of symptoms was August 25, 2018. Risk Assessment: Do you want to hurt yourself or someone else? Patient reports no desire to harm self or others. Initial Sepsis Screen: Does the patient meet any 2 criteria? No. Patient's initial sepsis screen is negative. Does the patient have a suspected source of infection? No. Patient's initial sepsis screen is negative. Care prior to arrival: None. 19:12 Method Of Arrival: Ambulatory aj1 19:12 Acuity: DONELL 3 aj1 Triage Assessment: 19:15 General: Appears in no apparent distress. comfortable, Behavior is calm, cooperative, aj1 appropriate for age. Pain: Denies pain. Neuro: Level of Consciousness is awake, alert, obeys commands, Reports numbness to his entire body Denies weakness blurred vision dizziness, headache. Cardiovascular: Patient's skin is warm and dry. Respiratory: Airway is patent Respiratory effort is even, unlabored, Respiratory pattern is regular, symmetrical. Historical: - Allergies: 19:15 No Known Allergies; aj1 - Home Meds: 19:15 amlodipine oral [Active]; Hydrochlorothiazide Oral [Active]; telmisartan oral oral aj1 [Active]; - PMHx: 19:15 Hypertension; GERD; aj1 - Immunization history:: Flu vaccine is not up to date. - Social history:: Smoking status: Patient/guardian denies using tobacco. - Ebola Screening: : Patient denies travel to an Ebola-affected area in the 21 days before illness onset. Screenin:16 Abuse screen: Denies threats or abuse. Denies injuries from another. Nutritional rv screening: No deficits noted. Tuberculosis screening: No symptoms or risk factors identified. Fall Risk None identified. Assessment: 20:00 General: Appears in no apparent distress. comfortable, Behavior is calm, cooperative. rv 20:00 Pain: Complains of pain in neck. Neuro: Level of Consciousness is awake, alert, obeys rv commands, Oriented to person, place, time, situation. Cardiovascular: Capillary refill < 3 seconds. Respiratory: Airway is patent. GI: No signs and/or symptoms were reported involving the gastrointestinal system. : No signs and/or symptoms were reported regarding the genitourinary system. EENT: No signs and/or symptoms were reported regarding the EENT system. Derm: Skin is intact. 20:51 Reassessment: Patient appears in no apparent distress at this time. Patient and/or rv family updated on plan of care and expected duration. Pain level reassessed. Patient is alert, oriented x 3, equal unlabored respirations, skin warm/dry/pink. Vital Signs: 19:15 BP 147 / 101; Pulse 96; Resp 20; Temp 97.6; Pulse Ox 97% on R/A; Weight 99.79 kg (R); aj1 Height 5 ft. 9 in. (175.26 cm) (R); Pain 0/10; 20:17 BP 130 / 85; Pulse 87; Pulse Ox 96% on R/A; rv 20:52 BP 130 / 85; Pulse 80; Pulse Ox 97% on R/A; rv 19:15 Body Mass Index 32.49 (99.79 kg, 175.26 cm) aj1 ED Course: 18:52 Patient arrived in ED. as 18:53 Nagi Cutler MD is Private Physician. as 19:14 Triage completed. aj1 19:15 Arm band placed on Patient placed in an exam room. aj1 19:26 Bertram Betancourt MD is Attending Physician. boris 19:30 Pillow given. air sampling and monitoring on. Pulse ox on. NIBP on. jp3 19:45 Initial lab(s) drawn, by me, sent to lab. EKG done, by ED staff, reviewed by Bertram Betancourt MD. Inserted saline lock: 22 gauge in right antecubital area, using aseptic technique. Blood collected. Patient maintains SpO2 saturation greater than 95% on room air. 19:48 X-ray completed. Portable x-ray completed in exam room. Patient tolerated procedure sg4 well. 19:50 XRAY Chest (1 view) In Process Unspecified. EDMS 20:17 Patient has correct armband on for positive identification. Bed in low position. Call rv light in reach. Side rails up X 1. Adult w/ patient. air sampling and monitoring on. Pulse ox on. NIBP on. 20:17 Bed in low position. Call light in reach. Side rails up X 1. Side rails up X2. jp3 20:18 Phosphorus Sent. jp3 20:18 Lipase Sent. jp3 20:19 TSH Sent. jp3 20:19 PT-INR Sent. jp3 20:19 Troponin (emerg Dept Use Only) Sent. jp3 20:19 NT PRO-BNP Sent. jp3 20:19 Magnesium Sent. jp3 20:19 LFT's Sent. jp3 20:19 CBC with Diff Sent. jp3 20:19 Basic Metabolic Panel Sent. jp3 20:43 Radiology exam delayed due to lab results not completed at this time. (BUN/Creatinine). vm2 20:51 Urine collected: clean catch specimen, clear. rv 21:08 Radiology exam delayed due to lab results not completed at this time. (BUN/Creatinine). vm2 21:[address] vm2 21:30 Head C Spine Cap Wo Con In Process Unspecified. EDMS 21:32 CT completed. Patient tolerated procedure well. Patient moved back from CT. vm2 22:01 Nagi Cutler MD is Referral Physician. [facility] 23:07 No provider procedures requiring assistance completed. IV discontinued, bleeding rv controlled, No redness/swelling at site. Pressure dressing applied. Administered Medications: 20:15 Drug: NS 0.9% 1000 ml Route: IV; Rate: 1 bolus; Site: right antecubital; rv 21:54 Follow up: IV Status: Completed infusion rv 21:54 Drug: NS 0.9% 1000 ml Route: IV; Rate: 125 ml/hr; Site: right antecubital; rv Outcome: 22:02 Discharge ordered by . boris 23:07 Discharged to home ambulatory. rv 23:07 Condition: good 23:07 Discharge instructions given to patient, Instructed on discharge instructions, follow up and referral plans. medication usage, Demonstrated understanding of instructions, follow-up care, medications, Prescriptions given X 1. 23:08 Patient left the ED. rv Signatures: Dispatcher [employer] Nora Aguilar RN RN Bertram Wilhelm MD MD cha Martinez, Amelia as McGuire, Victoria vm2 Alexys Murillo RN RN rv Pisarski, Jacob jp3 Ana Ann4
--- NOTE | 2018-09-09 22:03 | EDPHYS ---
Physician Documentation [facility] Name: Sumeet Reynoso Age: 42 yrs Sex: Male : 1975 Arrival Date: 09/09/2018 Time: 18:52 Bed 30 Private MD: Nagi Cutler B ED Physician Bertram Betancourt HPI: 09/09 19:33 This 42 yrs old Male presents to ER via Ambulatory with complaints of Neck boris Problem, Headache. 19:33 The patient or guardian complains of pain, that is acute, tenderness. The symptoms are boris located on the suprasternal notch, right sternocleidomastoid and left sternocleidomastoid. Onset: The symptoms/episode began/occurred 3 day(s) ago. Context: The problem was sustained at an unknown location. Associated signs and symptoms: The patient has no apparent associated signs or symptoms. Severity of symptoms: At their worst the symptoms were mild, moderate, in the emergency department the symptoms are unchanged. Historical: - Allergies: 19:15 No Known Allergies; aj1 - Home Meds: 19:15 amlodipine oral [Active]; Hydrochlorothiazide Oral [Active]; telmisartan oral oral aj1 [Active]; - PMHx: 19:15 Hypertension; GERD; aj1 - Immunization history:: Flu vaccine is not up to date. - Social history:: Smoking status: Patient/guardian denies using tobacco. - Ebola Screening: : Patient denies travel to an Ebola-affected area in the 21 days before illness onset. ROS: 19:35 Constitutional: Negative for fever, chills, and weight loss, Eyes: Negative for injury, boris pain, redness, and discharge, ENT: Negative for injury, pain, and discharge, Neck: Negative for injury, pain, and swelling, Cardiovascular: Negative for chest pain, palpitations, and edema, Respiratory: Negative for shortness of breath, cough, wheezing, and pleuritic chest pain, Back: Negative for injury and pain, : Negative for injury, bleeding, discharge, and swelling, MS/Extremity: Negative for injury and deformity, Skin: Negative for injury, rash, and discoloration, Psych: Negative for depression, anxiety, suicide ideation, homicidal ideation, and hallucinations, Allergy/Immunology: Negative for hives, rash, and allergies, Endocrine: Negative for neck swelling, polydipsia, polyuria, polyphagia, and marked weight changes, Hematologic/Lymphatic: Negative for swollen nodes, abnormal bleeding, and unusual bruising. 19:35 Abdomen/GI: Positive for abdominal pain, of the right upper quadrant. 19:35 Neuro: Positive for dizziness, numbness, weakness, of the right arm, left arm, right leg and left leg. Exam: 19:35 Constitutional: This is a well developed, well nourished patient who is awake, alert, boris and in no acute distress. Head/Face: Normocephalic, atraumatic. Eyes: Pupils equal round and reactive to light, extra-ocular motions intact. Lids and lashes normal. Conjunctiva and sclera are non-icteric and not injected. Cornea within normal limits. Periorbital areas with no swelling, redness, or edema. ENT: Nares patent. No nasal discharge, no septal abnormalities noted. Tympanic membranes are normal and external auditory canals are clear. Oropharynx with no redness, swelling, or masses, exudates, or evidence of obstruction, uvula midline. Mucous membranes moist. Neck: Trachea midline, no thyromegaly or masses palpated, and no cervical lymphadenopathy. Supple, full range of motion without nuchal rigidity, or vertebral point tenderness. No Meningismus. Chest/axilla: Normal chest wall appearance and motion. Nontender with no deformity. No lesions are appreciated. Cardiovascular: Regular rate and rhythm with a normal S1 and S2. No gallops, murmurs, or rubs. Normal PMI, no JVD. No pulse deficits. Respiratory: Lungs have equal breath sounds bilaterally, clear to auscultation and percussion. No rales, rhonchi or wheezes noted. No increased work of breathing, no retractions or nasal flaring. Back: No spinal tenderness. No costovertebral tenderness. Full range of motion. Male : Normal genitalia with no discharge or lesions. Skin: Warm, dry with normal turgor. Normal color with no rashes, no lesions, and no evidence of cellulitis. MS/ Extremity: Pulses equal, no cyanosis. Neurovascular intact. Full, normal range of motion. Psych: Awake, alert, with orientation to person, place and time. Behavior, mood, and affect are within normal limits. 19:35 Abdomen/GI: Inspection: abdomen appears normal, Bowel sounds: normal, Palpation: mild abdominal tenderness, in the right upper quadrant, Liver: no appreciated palpable abnormalities, Hernia: not appreciated. 19:35 Musculoskeletal/extremity: Exam is negative for acute changes. 19:35 Neuro: Orientation: is normal, appropriate for stated age, no acute changes, Mentation: is normal, appropriate for stated age, no acute changes, Memory: is normal, appropriate for stated age, no acute changes, Cranial nerves: grossly normal, is grossly normal based on the patient's age, no acute changes, Cerebellar function: is grossly normal, is grossly normal based on the patient's age, no acute changes, Motor: is normal, Gait: is steady, appropriate for age, is unsteady, Babinski testing is normal, seizure activity, is not displayed by the patient. Vital Signs: 19:15 BP 147 / 101; Pulse 96; Resp 20; Temp 97.6; Pulse Ox 97% on R/A; Weight 99.79 kg (R); aj1 Height 5 ft. 9 in. (175.26 cm) (R); Pain 0/10; 20:17 BP 130 / 85; Pulse 87; Pulse Ox 96% on R/A; rv 20:52 BP 130 / 85; Pulse 80; Pulse Ox 97% on R/A; rv 19:15 Body Mass Index 32.49 (99.79 kg, 175.26 cm) aj1 MDM: 19:26 Patient medically screened. [facility] 19:37 Data reviewed: vital signs, nurses notes, lab test result(s), EKG, radiologic studies, [facility] CT scan, plain films. 09/09 19:33 Order name: Basic Metabolic Panel; Complete Time: 21:43 [facility] 09/09 19:33 Order name: CBC with Diff; Complete Time: 20:57 [facility] 09/09 19:33 Order name: LFT's; Complete Time: 21:43 [facility] 09/09 19:33 Order name: Magnesium; Complete Time: 21:43 [facility] 09/09 19:33 Order name: NT PRO-BNP; Complete Time: 21:43 [facility] 09/09 19:33 Order name: PT-INR; Complete Time: 20:57 [facility] 09/09 19:33 Order name: Troponin (emerg Dept Use Only); Complete Time: 21:43 [facility] 09/09 19:33 Order name: XRAY Chest (1 view); Complete Time: 20:57 [facility] 09/09 19:33 Order name: Lipase; Complete Time: 21:43 [facility] 09/09 19:33 Order name: TSH; Complete Time: 21:43 [facility] 09/09 19:33 Order name: Urine Culture [facility] 09/09 19:37 Order name: Phosphorus; Complete Time: 21:14 [facility] 09/09 20:53 Order name: Urine Dipstick--Ancillary (enter results); Complete Time: 21:06 [facility] 09/09 19:33 Order name: EKG; Complete Time: 19:34 [facility] 09/09 19:33 Order name: Cardiac monitoring; Complete Time: 19:57 [facility] 09/09 19:33 Order name: EKG - Nurse/Tech; Complete Time: 19:57 [facility] 09/09 19:33 Order name: IV Saline Lock; Complete Time: 20:16 [facility] 09/09 19:33 Order name: Labs collected and sent; Complete Time: 20:16 [facility] 09/09 19:33 Order name: O2 Per Protocol; Complete Time: 19:57 [facility] 09/09 19:33 Order name: O2 Sat Monitoring; Complete Time: 19:57 [facility] 09/09 19:33 Order name: Urine Dipstick-Ancillary (obtain specimen); Complete Time: 20:54 [facility] 09/09 21:18 Order name: Head C Spine Cap Wo Con; Complete Time: 21:53 EDMS Administered Medications: 20:15 Drug: NS 0.9% 1000 ml Route: IV; Rate: 1 bolus; Site: right antecubital; rv 21:54 Follow up: IV Status: Completed infusion rv 21:54 Drug: NS 0.9% 1000 ml Route: IV; Rate: 125 ml/hr; Site: right antecubital; rv Disposition: 09/09/18 22:02 Discharged to Home. Impression: Weakness, Elevated white blood cell count, Unspecified kidney failure - insufficency. - Condition is Stable. - Discharge Instructions: Hypertension, Weakness, Hypertension, [id number], Weakness, [id number]-[id number], Chronic Kidney Disease, Adult, [id number]. - Medication Reconciliation Form, Thank You Letter, Antibiotic Education, Prescription Opioid Use form. - Follow up: Nagi Cutler; When: 2 - 3 days; Reason: Recheck today's complaints, Continuance of care, Re-evaluation by your physician. - Problem is new. - Symptoms have improved. Signatures: Dispatcher [employer] [facility] Nora Renteria RN RN aj1 Bertram Betancourt MD MD cha Vicente, Ronaldo, RN RN rv Corrections: (The following items were deleted from the chart) 21:18 19:34 Head C Spine CAP W Con+CT.RAD.BRZ ordered. [facility] 23:08 22:02 09/09/2018 22:02 Discharged to Home. Impression: Weakness; Elevated white blood rv cell count; Unspecified kidney failure - insufficency. Condition is Stable. Discharge Instructions: Weakness, Weakness, Bhyq-[id number], Chronic Kidney Disease, Adult, [id number], Hypertension, Hypertension, Fnsc-[id number]. Forms are Medication Reconciliation Form, Thank You Letter, Antibiotic Education, Prescription Opioid Use. Follow up: Nagi Cutler; When: 2 - 3 days; Reason: Recheck today's complaints, Continuance of care, Re-evaluation by your physician. Problem is new. Symptoms have improved. boris
--- NOTE | 2018-09-10 07:28 | EKG ---
Test Date: 2018-09-09 Test Time: 19:59:46 Identification Technician: MYA MEASUREMENT RESULTS: Intervals: Rate: 77 IA: 142 QRSD: 72 QT: 354 QTc: 400 [place]: P: 58 IA: 142 QRS: 73 T: 44 INTERPRETIVE STATEMENTS: Normal sinus rhythm Nonspecific T wave abnormality Abnormal ECG Compared to ECG 02/09/2018 05:54:12 T-wave abnormality now present ST (T wave) deviation no longer present Electronically Signed On 09-10-18 07:27:34 CDT by Tad Barragan
== END 2018-09-09 23:08 | disposition home or self-care (01) ==
LOC: ER 18:51
DX: D72.829 Elevated white blood cell count, unspecified (principal); N19 Unspecified kidney failure; I10 Essential (primary) hypertension
CPT/HCPCS: 36415; 70450; 71045; 71250; 72125; 80048; 80076; 81003; 83690; 83735; 83880; 84100; 84443; 84484; 85025; 85610; 87086; 87088; 93005; 96360; 96361; 99285; J7030

== ENCOUNTER 2020-02-21 15:24 | Emergency (ER) | payer BC, OTHER ==
[2020-02-21 17:15] VITALS: TEMP 97.1
[2020-02-21 17:17] VITALS: BP 139/96; O2SAT 98
== END 2020-02-21 17:08 | disposition home or self-care (01) ==
LOC: ER 15:24
DX: S60.222A Contusion of left hand, initial encounter (principal); W23.1XXA Caught, crushed, jammed, or pinched between stationary objects, initial encounter; Y93.89 Activity, other specified; Y92.9 Unspecified place or not applicable; I10 Essential (primary) hypertension; K21.9 Gastro-esophageal reflux disease without esophagitis
CPT/HCPCS: 73130; 96375; 96374; 99284; J2405

== ENCOUNTER 2025-02-03 22:30 | Inpatient (IN) | payer OTHER ==
--- OUTSIDE RECORDS SUMMARY | 2025-02-03 22:35 | XMS REPORT | Continuity of Care Document ---
Author Name Unknown Address [address] [facility] [address] [facility] [facility] [address] [place] [address] [facility] Address [address] [facility] [address] [place] [address] Care Team Providers Care Drawbridge Tender Name Role Phone No MD, Pcp Primary Care Physician Unavailab Ryley Geller Attending Clinician Unavailable Jonathan Da Silva Attending Clinician Un available Teto Faith Attending Clinician + [phone] Unknown, Attending Attending Clinician Unavailab TETO Bay Attending Clinician Unavailab MARY ANNE Munoz Attending Clinician Unavailable Mary Anne Fitzpatrick PA-C Attending Clinician [phone] Selene Oconnell APRN Attending Clinician [phone] Talia Garcia Attending Clinician [phone] TALIA HOLLOWAY Attending Clinician Unavailable Doctor Unassigned, [place] Attending Clinician U CONNIE Minor Attending Clinician Unavailable Connie Becker MD Attending Clinician [phone] Lab, Ang - Db Attending Clinician Unavailable Elvi Zamarripa Attending Clinician [phone] ELVI JONAS Attending Clinician UnavailSYLVIA Lozada Attending Clinician Unavailable Sylvia Sheehan Attending Clinician [phone] Therapy, Adc Covid Infusion Attending Clinician Unavailable Lamin Barrientos MD Attending Clinician [phone] LAMIN BARRIENTOS Attending Clinician Unavailable Sj BUTLER, Aga Ricketts Attending Clinician Unavai lable Only, Carlos Alberto Db Test Attending Clinician UnavailNADINE Duran Attending Clinician Unavailable SHAHANA RIVERA Attending Clinician Unavailable Anup Hedrick MD Attending Clinician [phone] Provider, Carlos [facility]to [facility] Attending Clinician Un available Nadine Lamb Attending Clinician [phone] Nagi Cutler Admitting Clinician Unavailable SYLVIA MONSALVE Admitting Clinician Unavailable Payers Payer Name Policy Type Policy Number Effective Date Expirati on Date Source [employer]IG[employer] 53 [id number] Common [facility] BCBS OF [place] OUT OF [place] [id number] 2015 00:00:00 Problems Condition Name Condition Details Condition Category Status Onset Date Resolution Date Last Treatment Date Treating Clinician Comments Source Lumbar radiculopa thy Lumbar radiculopa thy Disease Active 2022-11 00:00: 00 [facility] Back pain of thoracolum bar region Back pain of thoracolum bar region Disease Active 2022-11 00:00: 00 [facility] BDDC - F/U BDDC - F/U Active 01/18/2016 [facility] Diagnosis Active 01-17 00:00: 00 2016-01-18 10:01:00 Demarcus Rutledge BDDC-COLON SCREENING BDDC-COLON SCREENING Active 12/11/2015 [facility] Diagnosis Active 12-11 00:00: 00 2016-01-03 14:36:00 Demarcus Rutledge ACID REFLUX THROAT CLOSES WHEN EATING ACID REFLUX THROAT CLOSES WHEN EATING Active 12/04/2015 [facility] Diagnosis Active 12-04 00:00: 00 2015-12-11 13:39:00 Demarcus Rutledge Hypertensi ve disorder, systemic arterial (disorder) Hypertensi ve disorder, systemic arterial (disorder) Active Problem 01/21/2016 [facility] Problem Active 2016-01-21 04:53:14 Demarcus Rutledge Irritable colon (disorder) Irritable colon (disorder) Active Problem 01/21/2016 [facility] Problem Active 2016-01-21 04:53:14 Demarcus Rutledge No known active problems No known active problems Disease [facility] Induratio penis plastica Peyronie disease Problem [facility] Low testostero ne Low testostero ne Problem [facility] Kidney stone Kidney stones Problem [facility] Allergies, Adverse Reactions, Alerts Allergy Name Allergy Type Status Severity Reaction(s) Onset Date Inactive Date Treating Clinician Comments Source No Known Allergie s DA Active U 2023-11 00:00: 00 [facility] NO KNOWN ALLERGIE S Drug Class Active [facility] Social History Social Habit Start Date Stop Date Quantity Comments Source [facility] of [facility] Use [facility] Sex Assigned At [facility] Tobacco use and exposure 2023-09-17 00:00:00 2023-09-17 00:00:00 Smokeless tobacco non-user [facility] Alcohol intake 2023-09-17 00:00:00 2023-09-17 00:00:00 .14 /d [facility] Exposure to SARS-CoV-2 (event) 2022-09-06 00:00:00 2022-09-16 11:34:00 Not sure [facility] Cigarettes smoked current (pack per day) - Reported 2022-08-04 00:00:00 2022-08-04 00:00:00 [facility] Cigarette pack-years 2022-08-04 00:00:00 2022-08-04 00:00:00 [facility] History of Social function 2022-08-04 00:00:00 2022-08-04 00:00:00 [facility] Smoking Status Start Date Stop Date Source Former Smoker 2024-03-17 00:00:00 2024-03-17 00:00:00 [facility] Never smoked tobacco [facility] Unknown if ever smoked [facility] Medications Ordered Medication Name Filled Medication Name Start Date Stop Date Current Medication? Ordering Clinician Indication Dosage Frequency Signature (SIG) Comments Components Source bromphenira mine-pseudo ephedrine-D M 2-30-10 mg/5 mL syrup 6-14 00:00: 00 05-05 04:59 :00 No [id number] 5mL Take 5 mL by mouth 4 (four) times daily as needed for Congestion /Allergies for up to 5 days. [facility] Testosteron e Cypionate 200 MG/ML Testosteron e Cypionate 200 MG/ML 03-17 00:00: 00 No Testostero ne Cypionate 200 MG/ML dexamethaso ne sod phos PF injection 10 mg 02-09 22:30: 00 02-09 21:46 :00 No [id number] 10mg [facility] bromphenira mine-pseudo ephedrine-D M (BROMFED DM) 2-30-10 mg/5 mL syrup 02-09 00:00: 00 Yes [id number] 5mL Take 5 mL by mouth 3 (three) times daily as needed for Cough or Cold symptoms. [facility] cetirizine 10 mg tablet 02-09 00:00: 00 Yes [id number] 10mg Take 1 tablet by mouth in the morning. [facility] fluticasone propionate 50 mcg/actuati on nasal spray 02-09 00:00: 00 Yes [id number] 2{spray } Use 2 Sprays in each nostril in the morning. [facility] chlorthalid one (Hygroton) 25 MG tablet 2022-11 10:51: 25 Yes 25mg QD Take 25 mg by mouth 1 (one) time each day. [facility] dexlansopra zole (Dexilant) [address] capsule 2022-11 10:51: 25 Yes QD Take by mouth 1 (one) time each day. [facility] meloxicam (Mobic) 15 MG tablet 2022-11 00:00: 00 10-18 05:59 :00 No [id number] 15mg QD Take 1 tablet (15 mg total) by mouth 1 (one) time each day. [facility] predniSONE (Deltasone) 20 MG tablet 2022-11 00:00: 00 09-28 05:59 :00 No [id number] 20mg Take 1 tablet (20 mg total) by mouth See administra tion instructvik ns for 10 days. [facility] rosuvastati n (Crestor) 10 MG tablet 2022-11 00:00: 00 Yes 10mg Q2D Take 10 mg by mouth every other day. [facility] aspirin 81 mg EC tablet 04-17 10:10: 57 Yes 81mg Take 1 tablet by mouth in the morning. [facility] montelukast (SINGULAIR) 10 mg tablet 04-17 00:00: 00 05-03 04:59 :00 No [id number] 10mg Take 1 tablet by mouth in the morning for 15 days. [facility] promethazin e-dextromet horphan 6.25-15 mg/5 mL syrup 04-17 00:00: 00 04-28 04:59 :00 No [id number] 5mL Take 5 mL by mouth 4 (four) times daily for 10 days. [facility] predniSONE 20 mg tablet 04-17 00:00: 00 04-23 04:59 :00 No [id number] 40mg Take 2 tablets by mouth in the morning for 5 days. [facility] Dexlansopra zole 60 mg capsule 04-16 00:00: 00 Yes [facility] chlorthalid one 25 mg tablet 4-20 00:00: 00 Yes [facility] Syringe with Needle, Safety (EASY TOUCH SHEATHLOCK SYRG-NDL) 3 mL 25 gauge x 5/8" Syrg 2021-11 00:00: 00 Yes [id number] Use as directed [facility] testosteron e cypionate (Depo-Testo sterone) 200 MG/ML injection 2021-11 00:00: 00 Yes 100mg Inject 100 mg into the shoulder, thigh, or buttocks. [facility] tadalafiL 20 mg tablet 2021-11 00:00: 00 09-11 04:59 :00 No [id number] 20mg Take 1 tablet by mouth as needed for Erectile dysfunctio n. [facility] Syringe with Needle, Disp, 3 mL 18 x 1 1/2" Syrg 08-12 00:00: 00 Yes Use as directed [facility] Needle, Disp, 23 G 23 gauge x 1" Ndle 08-12 00:00: 00 Yes Use as directed [facility] Syringe with Needle, Disp, 3 mL 18 x 1 1/2" Syrg 08-12 00:00: 00 Yes Use as directed [facility] Needle, Disp, 23 G 23 gauge x 1" Ndle 08-12 00:00: 00 Yes Use as directed [facility] testosteron e cypionate 200 mg/mL injection 08-07 00:00: 00 09-16 00:00 :00 No 100mg 0.5 mL by Intramuscu lar route 2 (two) times a week on and Thursday. [facility] tadalafiL (CIALIS) 20 mg tablet 08-04 00:00: 00 09-10 21:33 :30 No [id number] 20mg Take 1 tablet by mouth as needed for Erectile dysfunctio n (2-3 times/week ,2 hrs prior to sexual activity). [facility] iopamidol (ISOVUE 370-500 mL) injection 100 mL 01-05 02:00: 00 01-05 02:00 :00 No [id number] 100mL 100 mL, Intravenou s, ONCE, 1 dose, On 01/04/22 at 2000, Routine [facility] NaCl 0.9% (NS) IV infusion 1,000 mL 01-04 21:33: 00 01-05 01:46 :00 No 1000mL at 999 mL/hr, Intravenou s, ONCE, 1 dose, On 01/04/22 at 1545, Routine [facility] sodium chloride (NS) injection 5 mL 01-04 21:32: 10 Yes 5mL 5 mL, Intravenou s, PRN, Starting on 01/04/22 at 1532, Until Discontinu ed, Routine, IV line flushing [facility] casirivimab -imdevimab (REGEN-COV (EUA)) injection (CO-FORMULA TION) 1,200 mg 2020-11 00:30: 00 11-05 23:15 :00 No [id number] 1200mg 1,200 mg, Subcutaneo us, ONCE, 1 dose, On Thu11/05/21 at 1830, Routine [facility] Testosteron e Cypionate 200 MG/ML Testosteron e Cypionate 200 MG/ML 2020-11 00:00: 00 No 1{ml} Testostero ne Cypionate 200 MG/ML fluticasone propionate 50 mcg/actuati on nasal spray 01-12 00:00: 00 Yes [id number] 1 spray each nostril twice a day for 5 days then daily [facility] Kenalog (Triamcinol one) Kenalog (Triamcinol one) 2017-11 00:00: 00 No 40mg [facility] Dexamethaso ne Dexamethaso ne 2017-11 00:00: 00 No 10mg [facility] riFAXimin 550 mg oral tablet 01-17 17:30: 00 Yes 550 mg = 1 tab, PO, TID, # 42 tab, 0 Refill(s), Pharmacy: [facility] cy #[id number] Demarcus Rutledge GoLYTELY oral powder for reconstitut ion 12-11 20:19: 00 Yes 240 mL, PO, Q10Min, # 1 ea, 0 Refill(s), Pharmacy: [facility] #[id number] Demarcus Rutledge lisinopril 40 mg oral tablet 12-11 19:16: 00 Yes 40 mg = 1 tab, PO, Daily, 0 Refill(s) Demarcus Rutledge pantoprazol e 40 mg oral granule 12-11 19:16: 00 Yes = 1 Pack, PO, Daily, # 30 ea, 0 Refill(s) Demarcus Rutledge Amlodipine 10 MG Oral Tablet [Norvasc] 12-11 19:16: 00 Yes 10 mg = 1 tab, PO, Daily, 0 Refill(s) Demarcus Rutledge Hydrochloro thiazide 12-11 19:16: 00 Yes 25 mg, PO, Daily, 0 Refill(s) Demarcus Rutledge Aspirin 81 81 MG Aspirin 81 81 MG No 1{table t} QD Aspirin 81 81 MG Omeprazole 40 MG Omeprazole 40 MG No QD Omeprazole 40 MG Telmisartan 80 MG Telmisartan 80 MG No 1{table t} QD Telmisarta n 80 MG Immunizations Ordered Immunization Name Filled Immunization Name Date Status Comments Source SARS-COV-2 COVID-19 PFIZER VACCINE 2021-02-08 00:00:00 Completed [facility] SARS-COV-2 COVID-19 PFIZER VACCINE 2021-02-08 00:00:00 Completed [facility] SARS-COV-2 COVID-19 PFIZER VACCINE 2021-02-08 00:00:00 Completed [facility] SARS-COV-2 COVID-19 PFIZER VACCINE 2021-02-08 00:00:00 Completed [facility] SARS-COV-2 COVID-19 PFIZER VACCINE 2021-02-08 00:00:00 Completed [facility] SARS-COV-2 COVID-19 PFIZER VACCINE 2021-02-08 00:00:00 Completed [facility] SARS-COV-2 COVID-19 PFIZER VACCINE 2021-02-08 00:00:00 Completed [facility] SARS-COV-2 COVID-19 PFIZER VACCINE 2021-02-08 00:00:00 Completed [facility] SARS-COV-2 COVID-19 PFIZER VACCINE 2021-02-08 00:00:00 Completed [facility] SARS-COV-2 COVID-19 PFIZER VACCINE 2021-02-08 00:00:00 Completed [facility] SARS-COV-2 COVID-19 PFIZER VACCINE 2021-02-08 00:00:00 Completed [facility] SARS-COV-2 COVID-19 PFIZER VACCINE 2021-02-08 00:00:00 Completed [facility] SARS-COV-2 COVID-19 PFIZER VACCINE 2021-02-08 00:00:00 Completed [facility] SARS-COV-2 COVID-19 PFIZER VACCINE 2021-02-08 00:00:00 Completed [facility] SARS-COV-2 COVID-19 PFIZER VACCINE 2021-02-08 00:00:00 Completed [facility] SARS-COV-2 COVID-19 PFIZER VACCINE 2021-02-08 00:00:00 Completed [facility] SARS-COV-2 COVID-19 PFIZER VACCINE 2021-02-08 00:00:00 Completed [facility] SARS-COV-2 COVID-19 PFIZER VACCINE 2021-02-08 00:00:00 Completed [facility] SARS-COV-2 COVID-19 PFIZER VACCINE 2021-01-18 00:00:00 Completed [facility] SARS-COV-2 COVID-19 PFIZER VACCINE 2021-01-18 00:00:00 Completed [facility] SARS-COV-2 COVID-19 PFIZER VACCINE 2021-01-18 00:00:00 Completed [facility] SARS-COV-2 COVID-19 PFIZER VACCINE 2021-01-18 00:00:00 Completed [facility] SARS-COV-2 COVID-19 PFIZER VACCINE 2021-01-18 00:00:00 Completed [facility] SARS-COV-2 COVID-19 PFIZER VACCINE 2021-01-18 00:00:00 Completed [facility] SARS-COV-2 COVID-19 PFIZER VACCINE 2021-01-18 00:00:00 Completed [facility] SARS-COV-2 COVID-19 PFIZER VACCINE 2021-01-18 00:00:00 Completed [facility] SARS-COV-2 COVID-19 PFIZER VACCINE 2021-01-18 00:00:00 Completed [facility] SARS-COV-2 COVID-19 PFIZER VACCINE 2021-01-18 00:00:00 Completed [facility] SARS-COV-2 COVID-19 PFIZER VACCINE 2021-01-18 00:00:00 Completed [facility] SARS-COV-2 COVID-19 PFIZER VACCINE 2021-01-18 00:00:00 Completed [facility] SARS-COV-2 COVID-19 PFIZER VACCINE 2021-01-18 00:00:00 Completed [facility] SARS-COV-2 COVID-19 PFIZER VACCINE 2021-01-18 00:00:00 Completed [facility] SARS-COV-2 COVID-19 PFIZER VACCINE 2021-01-18 00:00:00 Completed [facility] SARS-COV-2 COVID-19 PFIZER VACCINE 2021-01-18 00:00:00 Completed [facility] SARS-COV-2 COVID-19 PFIZER VACCINE 2021-01-18 00:00:00 Completed [facility] SARS-COV-2 COVID-19 PFIZER VACCINE 2021-01-18 00:00:00 Completed [facility] SARS-COV-2 COVID-19 PFIZER VACCINE Unknown Completed [facility] SARS-COV-2 COVID-19 PFIZER VACCINE Unknown Completed [facility] Vital Signs Vital Name Observation Time Observation Value Comments S ource Systolic blood pressure 2024-04-29 15:36:00 129 mm[Hg] [facility] Diastolic blood pressure 2024-04-29 15:36:00 86 mm[Hg] [facility] Heart rate 2024-04-29 15:36:00 78 /min [facility] Body temperature 2024-04-29 15:36:00 36.5 Wandy [facility] Respiratory rate 2024-04-29 15:36:00 17 /min [facility] Body height 2024-04-29 15:36:00 175.3 cm [facility] Body weight 2024-04-29 15:36:00 100.897 kg [facility] BMI 2024-04-29 15:36:00 32.85 kg/m2 [facility] Oxygen saturation in Arterial blood by Pulse oximetry 2024-04-29 15:36:00 97 /min [facility] height 2024-03-17 13:45:00 70 [in_i] [facility] weight 2024-03-17 13:45:00 222.8 [lb_av] [facility] temperature 2024-03-17 13:45:00 98.3 [degF] Com mon [facility] bmi 2024-03-17 13:45:00 31.96 kg/m2 [facility] oximetry 2024-03-17 13:45:00 99 % Commo n [facility] respiratory rate 2024-03-17 13:45:00 18 /min [facility] blood pressure systolic 2024-03-17 13:45:00 139 mm[Hg] [facility] blood pressure diastolic 2024-03-17 13:45:00 81 mm[Hg] [facility] Systolic blood pressure 2024-02-10 21:27:00 120 mm[Hg] [facility] Diastolic blood pressure 2024-02-10 21:27:00 86 mm[Hg] [facility] Heart rate 2024-02-10 21:27:00 106 /min [facility] Body temperature 2024-02-10 21:27:00 36.67 Wandy [facility] Respiratory rate 2024-02-10 21:27:00 17 /min [facility] Body weight 2024-02-10 21:27:00 100.835 kg [facility] BMI 2024-02-10 21:27:00 32.83 kg/m2 [facility] Oxygen saturation in Arterial blood by Pulse oximetry 2024-02-10 21:27:00 96 /min [facility] Body height 2023-09-17 15:47:00 [facility]3 [facility] Body weight 2023-09-17 15:47:00 [facility] BMI 2023-09-17 15:47:00 30.27 kg/m2 [facility] Systolic blood pressure 2023-04-17 15:09:00 113 mm[Hg] [facility] Diastolic blood pressure 2023-04-17 15:09:00 77 mm[Hg] [facility] Heart rate 2023-04-17 15:09:00 81 /min [facility] Body temperature 2023-04-17 15:09:00 36.5 Wandy [facility] Respiratory rate 2023-04-17 15:09:00 18 /min [facility] Body height 2023-04-17 15:09:00 175.3 cm [facility] Body weight 2023-04-17 15:09:00 101.606 kg [facility] BMI 2023-04-17 15:09:00 33.08 kg/m2 [facility] Oxygen saturation in Arterial blood by Pulse oximetry 2023-04-17 15:09:00 97 /min [facility] Systolic blood pressure 2022-11-13 22:03:00 149 mm[Hg] left arm [facility] Diastolic blood pressure 2022-11-13 22:03:00 87 mm[Hg] left arm [facility] Heart rate 2022-11-13 22:03:00 83 /min [facility] Body temperature 2022-11-13 22:03:00 37.22 Wandy [facility] Respiratory rate 2022-11-13 22:03:00 16 /min [facility] Body height 2022-11-13 22:03:00 175.3 cm [facility] Body weight 2022-11-13 22:03:00 103.148 kg [facility] BMI 2022-11-13 22:03:00 33.58 kg/m2 [facility] Oxygen saturation in Arterial blood by Pulse oximetry 2022-11-13 22:03:00 96 /min [facility] Systolic blood pressure 2022-08-04 21:13:00 121 mm[Hg] [facility] Diastolic blood pressure 2022-08-04 21:13:00 81 mm[Hg] [facility] Heart rate 2022-08-04 21:13:00 86 /min [facility] Body temperature 2022-08-04 21:13:00 36.39 Wandy [facility] Respiratory rate 2022-08-04 21:13:00 18 /min [facility] Body height 2022-08-04 21:13:00 175.3 cm [facility] Body weight 2022-08-04 21:13:00 101.152 kg [facility] BMI 2022-08-04 21:13:00 32.93 kg/m2 [facility] Oxygen saturation in Arterial blood by Pulse oximetry 2022-08-04 21:13:00 96 /min [facility] Systolic blood pressure 2022-01-05 00:00:00 140 mm[Hg] [facility] Diastolic blood pressure 2022-01-05 00:00:00 93 mm[Hg] [facility] Heart rate 2022-01-05 00:00:00 68 /min [facility] Respiratory rate 2022-01-05 00:00:00 16 /min [facility] Oxygen saturation in Arterial blood by Pulse oximetry 2022-01-05 00:00:00 98 /min [facility] Body temperature 2022-01-04 21:29:00 36.06 Wandy [facility] Body height 2022-01-04 21:29:00 175.3 cm [facility] Body weight 2022-01-04 21:29:00 98.431 kg [facility] BMI 2022-01-04 21:29:00 32.05 kg/m2 [facility] Systolic blood pressure 2021-11-06 00:00:00 117 mm[Hg] [facility] Diastolic blood pressure 2021-11-06 00:00:00 83 mm[Hg] [facility] Heart rate 2021-11-06 00:00:00 71 /min [facility] Body temperature 2021-11-06 00:00:00 36.56 Wandy [facility] Respiratory rate 2021-11-06 00:00:00 18 /min [facility] Oxygen saturation in Arterial blood by Pulse oximetry 2021-11-06 00:00:00 96 /min [facility] Body height 2021-11-05 23:14:00 175.3 cm [facility] Body weight 2021-11-05 23:14:00 93.441 kg [facility] BMI 2021-11-05 23:14:00 30.42 kg/m2 [facility] Systolic blood pressure 2021-01-12 23:21:00 148 mm[Hg] [facility] Diastolic blood pressure 2021-01-12 23:21:00 91 mm[Hg] [facility] Heart rate 2021-01-12 23:17:00 78 /min [facility] Body temperature 2021-01-12 23:17:00 36.72 Wandy [facility] Respiratory rate 2021-01-12 23:17:00 18 /min [facility] Body height 2021-01-12 23:17:00 175.3 cm [facility] Body weight 2021-01-12 23:17:00 97.523 kg [facility] BMI 2021-01-12 23:17:00 31.75 kg/m2 [facility] Oxygen saturation in Arterial blood by Pulse oximetry 2021-01-12 23:17:00 98 /min [facility] BMI Calculated 2016-01-18 15:49:00 [facility] Weight 2016-01-18 15:49:00 [facility] Height 2016-01-18 15:49:00 175.26 cm [facility] Systolic (mm Hg) 2016-01-18 15:49:00 [facility] Diastolic (mm Hg) 2016-01-18 15:49:00 [facility] Respitory Rate 2016-01-18 15:49:00 [facility] BMI Calculated 2015-12-11 19:12:00 [facility] Weight 2015-12-11 19:12:00 [facility] Systolic (mm Hg) 2015-12-11 19:12:00 [facility] Diastolic (mm Hg) 2015-12-11 19:12:00 [facility] Oral (F) 2015-12-11 19:12:00 97.9 F [facility] Heart Rate 2015-12-11 19:12:00 [facility] Height 2015-12-11 19:12:00 175.26 cm [facility] Procedures Procedure Date / Time Performed Performing Clinician Source POCT SARS-COV-2 ANTIGEN (BINAX NOW) 2024-02-10 21:40:00 Talia Holloway [facility] POCT SARS-COV-2 ANTIGEN (BINAX NOW) 2023-04-17 15:14:00 Talia Holloway [facility] CONSENT/REFUSAL FOR DIAGNOSIS AND TREATMENT 2023-04-17 15:01:08 Doctor Unassigned, [place] [facility] POCT URINALYSIS AUTO 2022-11-13 21:58:00 Ashly Becker [facility] PROSTATIC SPECIFIC ANTIGEN 2022-08-06 18:44:00 Eugenio [facility] PROLACTIN 2022-08-06 18:44:00 [facility]. METABOLIC PANEL ([id number]) 2022-08-06 18:44:00 Connie Becker [facility] TESTOSTERONE 2022-08-06 18:44:00 Connie [facility] LUTEINIZING HORMONE SERUM 2022-08-06 18:44:00 Eugenio [facility] ESTRADIOL, LEVEL 2022-08-06 18:44:00 [facility] 2022-08-06 18:44:00 Connie Becker [facility] EXTERNAL PROVIDER RECORDS 2022-08-05 05:01:00 Doctor Unassigned, [place] [facility] POCT URINALYSIS AUTO 2022-08-04 21:18:00 Ashly Becker [facility] CT ABDOMEN PELVIS W CONTRAST 2022-01-05 00:51:16 Sylvia Monsalve [facility] LIPASE 2022-01-04 21:51:00 Sylvia Monsalve [facility] TROPONIN I 2022-01-04 21:51:00 Sylvia Monsalve [facility] COMP. METABOLIC PANEL (19753) 2022-01-04 21:51:00 Sylvia Monsalve [facility] CBC WITH DIFF 2022-01-04 21:51:00 Sylvia Monsalve [facility] URINALYSIS 2022-01-04 21:51:00 [facility]AT[facility] 2022-01-04 21:14:14 Doctor Unassigned, [place] [facility] CONSENT/REFUSAL FOR DIAGNOSIS AND TREATMENT 2022-01-04 21:14:01 Doctor Unassigned, [place] [facility] IMMTRAC2 CONSENT 2021-11-06 06:01:00 Doctor Unas signed, [place] [facility] Hernia repair [facility] Encounters Start Date/Time End Date/Time Encounter Type Admission Type Attending [facility] Care Department Encounter ID Source 2024-03-17 13:48:00 Outpatient HeRyley [facility] [id number] [facility] 2023-12-29 10:27:00 Outpatient HeRyley [facility] [id number] [facility] 2021-12-11 12:17:28 Outpatient HeRyley [facility] [id number] [facility] 2021-12-11 11:29:50 Outpatient He Ryley [facility] [id number] [facility] 2021-12-11 11:29:32 Outpatient HeRyley [facility] [id number] [facility] 2024-10-21 02:52:00 2024-10-21 02:52:00 Outpatient Jonathan Newell [facility] [id number] [facility] 2024-04-29 10:40:00 2024-04-29 11:00:00 Urgent Care Teto Ashley, Attending [facility] 1.2.840.114 350.1.13.10 4.2.7.2.686 [id number] [facility] 2024-04-29 10:40:00 2024-04-29 10:40:00 Outpatient R TETO ASHLEY [facility] [id number] [facility] 2024-03-17 00:00:00 2024-03-17 00:00:00 OFFICE VISIT NEW PT LEVEL 4 [facility] [id number] [facility] 2024-02-10 16:20:00 2024-02-10 16:40:56 Outpatient R MARY ANNE FITZPATRICK [facility] [id number] [facility] 2024-02-10 16:20:00 2024-02-10 16:40:56 Urgent Care Mary Anne Fitzpatrick Unknown, Attending [facility] 1.84.114 350.1.13.10 4.2.7.2.686 [id number] [facility] 2023-09-17 11:00:00 2023-09-17 11:51:40 Office Visit Selene Oconnell [facility] 1..114 350.1.13.58 9.2.7.2.686 [id number] [facility] 2023-09-17 00:00:00 2023-09-17 11:51:40 Outpatient [facility] [id number] [facility] 2023-04-24 00:00:00 2023-04-24 00:00:00 Refill Talia Holloway [facility] 1.84.114 350.1.13.10 4.2.7.2.686 [id number] [facility] 2023-04-17 09:45:00 2023-04-17 10:05:00 Urgent Care Talia Holloway Unknown, Attending [facility] 1.84.114 350.1.13.10 4.2.7.2.686 [id number] [facility] 2023-04-17 09:45:00 2023-04-17 09:45:00 Outpatient TALIA CASTRO [facility] [id number] [facility] 2023-04-17 00:00:00 2023-04-17 00:00:00 Orders Only Doctor Unassigned, [place] [facility] 1.2.840.114 350.1.13.10 4.2.7.2.686 [id number] [facility] 2022-11-13 16:15:00 2022-11-13 16:46:07 Outpatient R EUGENIO [facility] [id number] [facility] 2022-11-13 16:15:00 2022-11-13 16:46:07 [facility] 1.2.840.114 350.1.13.10 4.2.7.2.686 [id number] [facility] 2022-09-19 00:00:00 2022-09-19 00:00:00 Telephone Eugenio [facility] 1.2.840.114 350.1.13.10 4.2.7.2.686 [id number] [facility] 2022-09-16 11:30:00 2022-09-16 11:45:00 Managing Member Visit Lab, Carlos [facility] 1..840.114 350.1.13.10 4.2.7.2.686 [id number] [facility] 2022-09-16 11:30:00 2022-09-16 11:30:00 Outpatient R ELVI JONAS [facility] [id number] [facility] 2022-09-16 00:00:00 2022-09-16 00:00:00 Case Management Eugenio [facility] 1.2.840.114 350.1.13.10 4.2.7.2.686 [id number] [facility] 2022-09-09 00:00:00 2022-09-09 00:00:00 Refill Eugenio [facility] 1.2.840.114 350.1.13.10 4.2.7.2.686 [id number] [facility] 2022-09-09 00:00:00 2022-09-09 00:00:00 Refill Docpete [facility] 1.2.840.114 350.1.13.10 4.2.7.2.686 [id number] [facility] 2022-08-12 00:00:00 2022-08-12 00:00:00 Telephone Eugenio [facility] 1.2.840.114 350.1.13.10 4.2.7.2.686 [id number] [facility] 2022-08-06 13:45:00 2022-08-06 13:50:09 Managing Member Visit Lab, Carlos Alberto - [place] [facility] 1.2.840.114 350.1.13.10 4.2.7.2.686 [id number] [facility] 2022-08-06 13:45:00 2022-08-06 13:45:00 Outpatient R EUGENIO [facility] [id number] [facility] 2022-08-05 00:00:00 2022-08-05 00:00:00 Orders Only Doctor Unassigned, [place] [facility] 1.2.840.114 350.1.13.10 4.2.7.2.686 [id number] [facility] 2022-08-04 16:00:00 2022-08-04 16:55:40 Outpatient R [facility]IT[facility] [id number] [facility] 2022-08-04 16:00:00 2022-08-04 16:55:40 Office Visit Docpete [facility] PROFESSIO [facility] 1.0.114 350.1.13.10 4.2.7.2.686 [id number] [facility] 2022-01-04 15:32:00 2022-01-04 19:56:00 Emergency [facility] [id number] [facility] 2022-01-04 15:32:00 2022-01-04 19:56:00 Emergency AleahmanishSylvia [facility] 1.840.114 350.1.13.10 4.2.7.2.686 [id number] [facility] 2021-11-06 00:00:00 2021-11-06 00:00:00 Orders Only Doctor Unassigned, [place] [facility] 1.840.114 350.1.13.10 4.2.7.2.686 [id number] [facility] 2021-11-05 17:00:00 2021-11-05 18:00:00 Nurse Visit Therapy, Adc Covid Lamin Meneses [facility] 1..114 350.1.13.10 4.2.7.2.686 [id number] [facility] 2021-11-05 17:00:00 2021-11-05 17:00:00 Outpatient R LAMIN BARRIENTOS [facility] [id number] [facility] 2021-11-02 00:00:00 2021-11-02 00:00:00 Telephone Sj Juan Pablofrederick Jamarcus [facility] 1.840.114 350.1.13.10 4.2.7.2.686 [id number] [facility] 2021-11-01 13:30:00 2021-11-01 13:45:00 Laboratory Only Only, Ang Db Test Unknown, Attending [facility] 1.840.114 350.1.13.10 4.2.7.2.686 [id number] [facility] 2021-11-01 13:30:00 2021-11-01 13:30:00 Outpatient Jolanta PEDRAZA NADINE [facility] [id number] [facility] 2021-02-08 10:35:00 2021-02-08 10:35:00 Outpatient R SHAHANA RIVERA [facility] [id number] [facility] 2021-01-26 00:00:00 2021-01-26 00:00:00 Anup Kaye [facility] 1.840.114 350.1.13.10 4.2.7.2.686 [id number] [facility] 2021-01-12 17:12:58 2021-01-12 17:32:58 Urgent Care Provider, Carlos Alberto [facility] Faustino [facility] 1..840.114 350.1.13.10 4.2.7.2.686 [id number] [facility] 2021-01-12 17:20:00 2021-01-12 17:20:00 Outpatient Jolanta PEDRAZA NADINE [facility] [id number] [facility] 2021-01-12 00:00:00 2021-01-12 00:00:00 Letter (Out) Doctor Unassigned, [place] [facility] 1..840.114 350.1.13.10 4.2.7.2.686 [id number] [facility] 2016-01-18 15:39:00 2016-01-19 05:59:00 Outpatient [facility] [id number] [facility] 2016-01-03 20:28:00 2016-01-03 23:00:00 Bedded Outpatient [facility] [id number] [facility] 2015-12-11 19:07:00 2015-12-12 05:59:00 Outpatient [facility] [id number] [facility] Results Test Description Test Time Test Comments Results Result Co mments Source CBC W/AUTO [id number] 13:46:00* Test Item Value Reference Range Interpretation Comme nts WHITE BLOOD CELL (test code = WBC) 8.5 K/MM3 3.8-9.8 N RED BLOOD CELL (test code = RBC) 6.31 M/MM3 3.95-5.67 H HEMOGLOBIN (test code = HGB) 15.3 G/DL 12.4-16.7 N HEMATOCRIT (test code = HCT) 49.4 % 35.9-49.5 N MEAN CELL VOLUME (test code = MCV) 78 fL 81.7-96.1 L MEAN CELL HGB (test code = MCH) 24.2 pg 27.6-33.2 L MEAN CELL HGB CONCETRATION (test code = MCHC) 31.0 % 32.9-35.5 L RED CELL DISTRIBUTION WIDTH (test code = RDW) 14.8 % 12.1-15.2 N PLATELET COUNT (test code = PLT) 386 K/MM3 129-368 H MEAN PLATELET VOLUME (test c ode = MPV) 9.8 fl 7.4-10.4 N NEUTROPHIL % (test code = NT%) 67.2 % 43-75 N IMMATURE GRANULOCYTE % (test code = IG%) 0.2 % 0.0-2.0 N LYMPHOCYTE % (test code = LY%) 18.5 % 14-44 N MONOCYTE % (test code = MO%) 9.8 % 4-13 N EOSINOPHIL % (test code = EO%) 3.2 % 0-6 N BASOPHIL % (test code = BA%) 1.1 % 0-2 N NUCLEATED RBC % (test code = NRBC%) 0.0 % 0-1.0 N NEUTROPHIL # (test code = NT#) 5.72 K/mm3 2.0-7.6 N IMMATURE GRANULOCYTE # (test code = IG#) 0.02 x10 3/uL 0-0.03 N LYMPHOCYTE # (test code = LY#) 1.57 K/mm3 1.0-3.8 N MONOCYTE # (test code = MO#) 0.83 K/mm3 0.1-0.8 H EOSINOPHIL # (test code = EO#) 0.27 K/mm3 0.0-0.2 H BASOPHIL # (test code = BA#) 0.09 K/mm3 0.0-0.2 N NUCLEATED RBC # (test code = NRBC#) 0.00 K/mm3 0.0-0.1 N POCT SARS-COV-2 ANTIGEN (BINAX NOW)2024-02-10 21:40:00* Test Item Value Reference Range Interpretation Comme nts POCT SARS-COV-2 ANTIGEN (yamil t code = 10473-5) Not Detected Not Detected On board controls acceptable with C Line (test code = 3574) Yes Lab Interpretation (test cod e = 43241-6) Normal [facility] SARS-COV-2 ANTIGEN (BINAX NOW)2023-04-17 15:15:00* Test Item Value Reference Range Interpretation Comme nts POCT SARS-COV-2 ANTIGEN (test code = 60103-9) Not Detected Not Detected On board controls acceptable with C Line (test code = 3574) Yes KING (test code = KING) accurate development and interpretation of all internal controlsNicolle Silva RN ?04/17/2023 ?10:15 AM [facility] URINALYSIS, [id number] 22:07:00 * Test Item Value Reference Range Interpretation Comme nts POCT U SP GRAV (test code = 3255) 1.025 mg/dl 1.005-1.025 POCT PH U (test code = 3254) 6.0 mg/dl 5-8 POCT U LEUK EST (test code = 3263) negative Negative - Negative POCT U NIT (test code = 3262) negative Negative - Negati ve POCT U PROT (test code = 3259) negative Negative - Negative POCT U GLU (test code = 3256) negative Negative - Negati ve POCT U KETONE (test code = 3258) negative Negative - Negative POCT U UROBILI (test code = 3260) 0.2 mg/dl 0.2-1 POCT U BILI (test code = 3261) negative Negative - Negative POCT U BLD (test code = 3257) negative Negative - Negati ve POCT U COLOR (test code = 3266) yellow POCT U APPEAR (test code = 3267) clear [facility], [id number] 22:07:00 * Test Item Value Reference Range Interpretation Comme nts POCT U SP GRAV (test code = 3255) 1.025 mg/dl 1.005-1.025 POCT PH U (test code = 3254) 6.0 mg/dl 5-8 POCT U LEUK EST (test code = 3263) negative Negative - Negative POCT U NIT (test code = 3262) negative Negative - Negati ve POCT U PROT (test code = 3259) negative Negative - Negative POCT U GLU (test code = 3256) negative Negative - Negati ve POCT U KETONE (test code = 3258) negative Negative - Negative POCT U UROBILI (test code = 3260) 0.2 mg/dl 0.2-1 POCT U BILI (test code = 3261) negative Negative - Negative POCT U BLD (test code = 3257) negative Negative - Negati ve POCT U COLOR (test code = 3266) yellow POCT U APPEAR (test code = 3267) clear [facility], [id number] 08:42:26 E2<15pg/mL08/07/2022 3:[address] [facility] SERVICESEstradiol Reference Ranges: Non Females: Early Follicular 22.4 - 115 Mid Follicular 25 - 115 Ovulatory Peak 32.1 - 517 Mid Luteal 36.5 - 246 Post Menopausal Female : Not on Hormone therapy <15 - 25.1 Males: ?>=19 years old <15 - 31.5 ?Pediatric: ? Pediatric male and female <15 - 38.2 Pre-Puberty female <15 - 16 Puberty female 36.5 - 196 Pre-Puberty male <15 Puberty male 19.5 - 34.8UnPampa [facility] Medical CenterLUTEINIZING HORMONE [id number] 08:42:26 LH<0.20mIU/mL08/07/2022 3:42 AM [facility] LABORATORY SERVICESL Reference Ranges: Menstrating Female ? ? Follicular phase ? ? 2.1-10.9 mIU/mL ? ? Mid-cycle peak ? ? ? 19.1-103.0 mIU/mL ? ? Luteal phase ? 1.2-12.8 mIU/mL Post-menopausal female ? ?10.8-58.6 mIU/mL Adule Male ?1.2-8.6 mIU/mLUnPampa Regional Medical CenterPROLACTIN2022-09-22 08:42:26* Test Item Value Reference Range Interpretation Comme [facility] PROLACTIN (test code = 7157611645) 12.5 ng/mL 2.6-13.1 Lab Interpretation (test cod e = 08007-1) Normal [facility]2022-09-22 06:57:31* Test Item Value Reference Range Interpretation Comme nts TESTOST (test code = 8055360938) 116.0 ng/dL 132-813 L KING (test code = KING) Normal Ranges Adul t Female: ?6-77 ng/dLAdult Male <50 years: ? ?132-813 ng/dLAdult Male >50 years: ? ?72-623 ng/dL Females on Control Pills may have higher results. Obese patients may have lower results. Biotin has been reported to cause a negative bias, interpret results relative to patient's use of biotin. Lab Interpretation (test code = 28501-7) Abnormal [facility] HospitalPROSTATIC SPECIFIC [id number] 04:49:17 * Test Item Value Reference Range Interpretation Comme nts PSA (test code = 8805813501) 0.59 ng/mL See_Comment [Automated message] The system which generated this result transmitted reference range: <=4.00. The reference range was not used to interpret this result as normal/abnormal. KING (test code = KING) Biotin has been reported to cause a negative bias, interpret results relative to patient's use of biotin. Lab Interpretation (test code = 17911-1) Normal [facility]. METABOLIC PANEL (38780)2022-08-07 04:18:31* Test Item Value Reference Range Interpretation Comme nts NA (test code = 4853562518) 137 mmol/L 135-145 K (test code = 0282118676) 3.4 mmol/L 3.5-5 L CL (test code = 0428585601) 98 mmol/L 98-108 CO2 TOTAL (test code = 2010938761) 29 mmol/L 23-31 AGAP (test code = 2891876400) 2-16 BUN (test code = 2166547890) 20 mg/dL 7-23 GLUCOSE (test code = 5047025787) 143 mg/dL 70-110 H CREATININE (test code = 4585803775) 1.14 mg/dL 0.6-1.25 TOTAL BILI (test code = 9629297288) 0.7 mg/dL 0.1-1.1 CALCIUM (test code = 5150627407) 9.5 mg/dL 8.6-10.6 T PROTEIN (test code = 7683980160) 6.9 g/dL 6.3-8.2 ALBUMIN (test code = 5033912871) 4.4 g/dL 3.5-5 ALK PHOS (test code = 3464057772) 59 U/L 34-122 ALTv (test code = 1742-6) 28 U/L 5-50 AST(SGOT) (test code = 9500009898) 27 U/L 13-40 eGFR (test code = 9356910242) mL/min/1.73m2 KING (test code = KING) Association of Glomerular Filtration Rate (GFR) and Staging of Kidney Disease* + --+ --+ ------+| GFR (mL/min/1.73 m2) ?| With Kidney Damage ?| ?Without Kidney Damage+ --------+ --------+ +| ?>90 ?| ?Stage one ?| ? Normal ?+ ---+ ---+ -------+| ?60-89 ?| ?Stage two ?| ? Decreased GFR ? + --+ --+ ------+| ?30-59 ?| ?Stage three ?| ? Stage three ? + --+ --+ ------+| ?15-29 ?| ?Stage four ? | ? Stage four ?+ ---+ ---+ -------+| ?<15 (or dialysis) ? ?| ?Stage five ? | ? Stage five ?+ ---+ ---+ -------+ *Each stage assumes the associated GFR level has been in effect for at least three months. ?Stages 1 to 5, with or without kidney disease, indicate chronic kidney disease. Notes: Determination of stages one and two (with eGFR >59mL/min/1.73 m2) requires estimation of kidney damage for at least three months as defined by structural or functional abnormalities of the kidney, manifested by either:Pathological abnormalities or Markers of kidney damage (including abnormalities in the composition of the blood or urine or abnormalities in imaging tests). Lab Interpretation (test code = 25555-5) Abnormal [facility] WITH [id number] 20:52:49* Test Item Value Reference Range Interpretation Comme nts WBC (test code = 6690-2) See_Comment [Automated CyberSponse] The system which generated this result transmitted reference range: 4.20 - 10.70 10*3/?L. The reference range was not used to interpret this result as normal/abnormal. RBC (test code = 789-8) See_Comment H [Automated CyberSponse] The system which generated this result transmitted reference range: 4.26 - 5.52 10*6/?L. The reference range was not used to interpret this result as normal/abnormal. HGB (test code = 718-7) 17.6 g/dL 12.2-16.4 H HCT (test code = 4544-3) 51.1 % 38.4-49.3 H MCV (test code = 787-2) 86.6 fL 81.7-95.6 MCH (test code = 785-6) 29.8 pg 26.1-32.7 MCHC (test code = 786-4) 34.4 g/dL 31.2-35 RDW-SD (test code = 50657-1) 39.3 fL 38.5-51.6 RDW-CV (test code = 788-0) 12.5 % 12.1-15.4 PLT (test code = 777-3) See_Comment H [Automated messa ge] The system which generated this result transmitted reference range: 150 - 328 10*3/?L. The reference range was not used to interpret this result as normal/abnormal. MPV (test code = 97859-1) 10.2 fL 9.8-13 NRBC/100 WBC (test code = 0184626225) See_Comment [Automated Konjekt ssage] The system which generated this result transmitted reference range: 0.0 - 10.0 /100 WBCs. The reference range was not used to interpret this result as normal/abnormal. NRBC x10^3 (test code = 6562842121) See_Comment [Automated messa ge] The system which generated this result transmitted reference range: 10*3/?L. The reference range was not used to interpret this result as normal/abnormal. GRAN MAT (NEUT) % (test code = 770-8) 65.8 % IMM GRAN % (test code = 8728543900) 0.80 % LYMPH % (test code = 736-9) 21.7 % MONO % (test code = 5905-5) 7.5 % EOS % (test code = 713-8) 3.4 % BASO % (test code = 706-2) 0.8 % GRAN MAT x10^3(ANC) (test code = 8438007594) 4.89 10*3/uL 1.99-6.95 IMM GRAN x10^3 (test code = 2202676802) 0.06 10*3/uL 0-0.06 LYMPH x10^3 (test code = 731-0) 1.61 10*3/uL 1.09-3.23 MONO x10^3 (test code = 742-7) 0.56 10*3/uL 0.36-1.02 EOS x10^3 (test code = 711-2) 0.25 10*3/uL 0.06-0.53 BASO x10^3 (test code = 704-7) 0.06 10*3/uL 0.01-0.09 Lab Interpretation (test code = 63216-4) Abnormal [facility] URINALYSIS, [id number] 21:19:00 * Test Item Value Reference Range Interpretation Comme nts POCT U SP GRAV (test code = 3255) 1.025 mg/dl 1.005-1.025 POCT PH U (test code = 3254) 7.0 mg/dl 5-8 POCT U LEUK EST (test code = 3263) Negative Negative - Negative POCT U NIT (test code = 3262) Negative Negative - Negati ve POCT U PROT (test code = 3259) Negative Negative - Negative POCT U GLU (test code = 3256) Negative Negative - Negati ve POCT U KETONE (test code = 3258) Negative Negative - Negative POCT U UROBILI (test code = 3260) 0.2 mg/dl 0.2-1 POCT U BILI (test code = 3261) Negative Negative - Negative POCT U BLD (test code = 3257) Negative Negative - Negati ve POCT U COLOR (test code = 3266) Yellow POCT U APPEAR (test code = 3267) clear Lab Interpretation (test cod e = 84594-1) Normal [facility] URINALYSIS, [id number] 21:19:00 * Test Item Value Reference Range Interpretation Comme nts POCT U SP GRAV (test code = 3255) 1.025 mg/dl 1.005-1.025 POCT PH U (test code = 3254) 7.0 mg/dl 5-8 POCT U LEUK EST (test code = 3263) Negative Negative - Negative POCT U NIT (test code = 3262) Negative Negative - Negati ve POCT U PROT (test code = 3259) Negative Negative - Negative POCT U GLU (test code = 3256) Negative Negative - Negati ve POCT U KETONE (test code = 3258) Negative Negative - Negative POCT U UROBILI (test code = 3260) 0.2 mg/dl 0.2-1 POCT U BILI (test code = 3261) Negative Negative - Negative POCT U BLD (test code = 3257) Negative Negative - Negati ve POCT U COLOR (test code = 3266) Yellow POCT U APPEAR (test code = 3267) clear Lab Interpretation (test cod e = 57472-9) [facility] [id number] 22:46:23* Test Item Value Reference Range Interpretation Comments TROPONIN I (test code = 0234839182) 0.004 ng/mL See_Comment [Automated message] The system which generated this result transmitted reference range: <=0.034. The reference range was not used to interpret this result as normal/abnormal. KING (test code = KING) Reference (Normal) Range (defined by the 99th percentile reference limit): <= 0.034 ng/mL Note: Cardiac troponin begins to rise 3-4 hours after the onset of ischemia. Repeat in 4-6 hours if the sample was drawn within 3-4 hours of the onset of the symptom and found normal. Diagnosis of myocardial injury is made with acute changes in cTn concentrations with at least one serial sample above the 99th percentile upper reference limit (URL), taken together with the patient's clinical presentation. Biotin has been reported to cause a negative bias, interpret results relative to patient's use of biotin. Lab Interpretation (test code = 31256-5) Normal [facility] Metabolic [id number] 22:34:45* Test Item Value Reference Range Interpretation Comme nts NA (test code = 6787582694) 137 mmol/L 135-145 K (test code = 7994148199) 3.9 mmol/L 3.5-5.0 CL (test code = 1990228414) 101 mmol/L 98-108 CO2 TOTAL (test code = 5872158305) 32 mmol/L 23-31 H AGAP (test code = 0804495132) 2-16 BUN (test code = 6950904509) 17 mg/dL 7-23 GLUCOSE (test code = 8917919285) 88 mg/dL 70-110 CREATININE (test code = 7052271390) 1.17 mg/dL 0.60-1.25 TOTAL BILI (test code = 4238189197) 0.8 mg/dL 0.1-1.1 CALCIUM (test code = 7913871281) 9.1 mg/dL 8.6-10.6 T PROTEIN (test code = 5649297254) 7.0 g/dL 6.3-8.2 ALBUMIN (test code = 3651147060) 4.5 g/dL 3.5-5.0 ALK PHOS (test code = 2589528977) 53 U/L 34-122 ALTv (test code = 1742-6) 34 U/L 5-50 AST(SGOT) (test code = 0720341025) 36 U/L 13-40 eGFR (test code = 4656405919) mL/min/1.73m2 KING (test code = KING) Association of Glomerular Filtration Rate (GFR) and Staging of Kidney Disease* + --+ --+ ------+| GFR (mL/min/1.73 m2) ?| With Kidney Damage ?| ?Without Kidney Damage+ --------+ --------+ +| ?>90 ?| ?Stage one ?| ? Normal ?+ ---+ ---+ -------+| ?60-89 ?| ?Stage two ?| ? Decreased GFR ? + --+ --+ ------+| ?30-59 ?| ?Stage three ?| ? Stage three ? + --+ --+ ------+| ?15-29 ?| ?Stage four ? | ? Stage four ?+ ---+ ---+ -------+| ?<15 (or dialysis) ? ?| ?Stage five ? | ? Stage five ?+ ---+ ---+ -------+ *Each stage assumes the associated GFR level has been in effect for at least three months. ?Stages 1 to 5, with or without kidney disease, indicate chronic kidney disease. Notes: Determination of stages one and two (with eGFR >59mL/min/1.73 m2) requires estimation of kidney damage for at least three months as defined by structural or functional abnormalities of the kidney, manifested by either:Pathological abnormalities or Markers of kidney damage (including abnormalities in the composition of the blood or urine or abnormalities in imaging tests). Lab Interpretation (test code = 98975-7) [facility] [id number] 22:34:05* Test Item Value Reference Range Interpretation Comme nts LIPASE (test code = 2615636359) 93 U/L 0-220 Lab Interpretation (test cod e = 33327-6) Normal [facility] with [id number] 22:22:22* Test Item Value Reference Range Interpretation Comme nts WBC (test code = 6690-2) See_Comment [Automated messa ge] The system which generated this result transmitted reference range: 4.20 - 10.70 10*3/?L. The reference range was not used to interpret this result as normal/abnormal. RBC (test code = 789-8) See_Comment H [Automated messa ge] The system which generated this result transmitted reference range: 4.26 - 5.52 10*6/?L. The reference range was not used to interpret this result as normal/abnormal. HGB (test code = 718-7) 16.7 g/dL 12.2-16.4 H HCT (test code = 4544-3) 49.3 % 38.4-49.3 MCV (test code = 787-2) 84.9 fL 81.7-95.6 MCH (test code = 785-6) 28.7 pg 26.1-32.7 MCHC (test code = 786-4) 33.9 g/dL 31.2-35.0 RDW-SD (test code = 19996-7) 41.4 fL 38.5-51.6 RDW-CV (test code = 788-0) 13.4 % 12.1-15.4 PLT (test code = 777-3) See_Comment H [Automated messa ge] The system which generated this result transmitted reference range: 150 - 328 10*3/?L. The reference range was not used to interpret this result as normal/abnormal. MPV (test code = 64281-2) 10.2 fL 9.8-13.0 NRBC/100 WBC (test code = 1966758677) See_Comment [Automated [employer]] The system which generated this result transmitted reference range: 0.0 - 10.0 /100 WBCs. The reference range was not used to interpret this result as normal/abnormal. NRBC x10^3 (test code = 0973995926) <0.01 See_Comment [Automated messa ge] The system which generated this result transmitted reference range: 10*3/?L. The reference range was not used to interpret this result as normal/abnormal. GRAN MAT (NEUT) % (test code = 770-8) 65.0 % IMM GRAN % (test code = 0261997021) 0.60 % LYMPH % (test code = 736-9) 21.3 % MONO % (test code = 5905-5) 7.7 % EOS % (test code = 713-8) 4.4 % BASO % (test code = 706-2) 1.0 % GRAN MAT x10^3(ANC) (test code = 4914337143) 5.57 10*3/uL 1.99-6.95 IMM GRAN x10^3 (test code = 1383012565) 0.05 10*3/uL 0.00-0.06 LYMPH x10^3 (test code = 731-0) 1.83 10*3/uL 1.09-3.23 MONO x10^3 (test code = 742-7) 0.66 10*3/uL 0.36-1.02 EOS x10^3 (test code = 711-2) 0.38 10*3/uL 0.06-0.53 BASO x10^3 (test code = 704-7) 0.09 10*3/uL 0.01-0.09 Lab Interpretation (test code = 32037-6) Abnormal [facility] Notes Date/Time Note Provider Source 2024-10-21 12:19:00 [id number] [place] [address] PATIENT NAME: SUMEET REYNOSO ADMIT DATE: 10/21/24 ACCOUNT NO: [id number] ROOM NO: AGE: 49 REPORT TYPE: OPERATIVE REPORT SEX: M ADMITTING PHYSICIAN: ATTENDING PHYSICIAN:Jonathan Da Silva MD OPERATION DATE: 10/21/2024 PREOPERATIVE DIAGNOSES: Right long finger acute flexor tenosynovitis, trigger digit. POSTOPERATIVE DIAGNOSES: Right long finger acute flexor tenosynovitis, trigger digit. PROCEDURE: Right long finger A1 nedra release with synovectomy and simple closure 2 cm right palmar wound. SURGEON: Jonathan Da Silva M.D. LAUNCH MANAGER: Dipti Bey C.F.A. ANESTHESIA: General endotracheal and approximately 5 to 10 mL of 1% lidocaine plain infiltrated as a digital block and median nerve block. INTRAVENOUS FLUIDS: 700 mL crystalloid. URINE OUTPUT: None recorded. COMPLICATIONS: None. SPECIMENS: None. BLOOD LOSS: Zero. FINDINGS: Synovitis. INDICATIONS FOR PROCEDURE: Mr. Reynoso is a 49-year-old right hand dominant white male with a long-standing history of pain and triggering with a nodule to the right long finger. He is status post steroid injections, which were not helpful and he requested A1 nedra release. He understood the procedure, understood potential complications to include, but limited to hematoma, seroma, infection, open wounds, recurrence, nerve injury, tendon injury and there is no guarantee of successful surgery to please the patient. Nonetheless, he wished to proceed. PROCEDURE IN DETAIL: Informed consent obtained. Risks, benefits, and alternatives of the planned procedure discussed with the patient. Consent form signed. The patient was marked, was taken to surgery. He was intubated per PATIENT NAME: SUMEET REYNOSO anesthesia staff. A right upper extremity tourniquet was placed with Webril. He was prepped and draped in normal sterile fashion. Timeout was completed. He was normoglycemic and normothermic. All pressure points were padded. Then 2 g of Ancef was delivered. No TXA was necessary. Once timeout was completed, the hand was elevated, esmarched, exsanguinated and the tourniquet was inflated to 250 mmHg. The hand was placed in a lead hand with padding and approximately 1.5 to 2 cm incision was made in the distal palmar crease with a #15 blade. The palmar fascia was lysed with iris scissors and the lumbrical neurovascular bundles and fibroosseous sheath of the right long finger were identified. A1 nedra was clearly visible. It was incised initially with a #15 blade and then from the flexor tendons with a [place] elevator and lysed with iris scissors including a 0.081 to the proximal extent of a 2. The lysed fibroosseous sheath was excised at the A1 nedra to prevent recurrence. Flexor tendons were identified and not injured. Neurovascular bundles were identified and not injured as well as the lumbrical, which were clearly visible with 3.5 loupe magnification. Wound was irrigated with bacitracin, clindamycin, gentamicin solution with absolutely no bleeding. Skin was closed with multiple vertical mattress 3-0 nylon. Digital block and median nerve block completed with 1% lidocaine plain 10 mL followed by Xeroform and a light dressing using 1-inch Deneen and 1-inch Coban. The patient tolerated the procedure well, no complications. The tourniquet deflated. Cap refill was normal. No venous congestion. No active bleeding. Taken to recovery room in stable and extubated state. Family was notified personally. All counts were correct. Dictated By: Jonathan Da Silva MD Date Dictated: 10/21/2024 12:19:56 Date Transcribed: 10/21/2024 12:41:56 CKL/JAROCHO Receipt ID: [id number] Authenticated by Jonathan Da Silva MD On 10/28/2024 12:35:19 PM at 1235 PATIENT NAME: SUMEET REYNOSO [facility] 2024-10-21 10:25:00 [facility] ([facility] Brief Op Note REPORT#:[id number] REPORT STATUS: Signed REPORT INITIALIZATION DATE:10/21/24 TIME: 102 PATIENT: SUMEET REYNOSO UNIT #: [id number] ROOM/BED: : 73 AGE: 49 SEX: M ATTEND: Jonathan Da Silva MD ADM AUTHOR: Jonathan Da Silva MD REPT SERVICE DT/TIME: 10/21/24 1025 * ALL edits or amendments must be made on the electronic/computer document * Op/Inv Proc Note - Brief Pre-procedure diagnosis: RLF flexor tenosynovitis Post-procedure diagnosis: same as pre procedure dx Procedures performed: Release A1 nedra RLF with closure 2 cm R palmar wound Primary Surgeon: belinda da silva md [facility] Plant And Instrument Engineer(s): dipti gonzalez Anesthesiologist: morelia Anesthesia: general anesthesia, local anesthesia Findings: synovitis Complications: none Estimated blood loss in ml's: none Specimens removed/altered: none Drain(s): None Tube(s): none Implant(s): none Approach: open Wound class: clean Disposition: plan to D/C home at 1026 RPT #:[id number] END OF REPORT [facility] 2024-10-18 13:02:00 [id number] [place] [address] PATIENT NAME: SUMEET REYNOSO ADMIT DATE: ACCOUNT NO: [id number] ROOM NO: AGE: 49 REPORT TYPE: ELECTROCARDIOGRAM SEX: M ADMITTING PHYSICIAN: ATTENDING PHYSICIAN:Jonathan Da Silva MD Order: [id number] Test Reason : PRE OP Test Date/Time Stamp: ThuOct 18 2024 13:02:28 Blood Pressure : / mmHG Vent. Rate : 067 BPM Atrial Rate : 067 BPM P-R Int : 158 ms QRS Dur : 080 ms QT Int : 386 ms P-R-T Axes : 068 070 040 degrees QTc Int : 407 ms Normal sinus rhythm Confirmed by THU TORRES ([id number]) on 10/19/2024 10:30:56 PM Referred By: Vinicius Da Silva Confirmed by:THU TORRES at 2230 PATIENT NAME: SUMEET REYNOSO [facility]
[2025-02-04] MEDS ORDERED: ONDANSETRON 4 MG/2 ML VIAL ONE (00:48)
[2025-02-04] MEDS ORDERED: MORPHINE 4 MG/ML SYR ONE (00:48)
[2025-02-04] MEDS ORDERED: FAMOTIDINE 20 MG/2 ML VIAL IV ONE (00:49)
[2025-02-04] MEDS ORDERED: METRONIDAZOLE 500mg IVPB 500 MG/100 ML BAG IV ONE ×2 (00:49→10:30)
[2025-02-04] MEDS ORDERED: CIPROFLOXACIN 400mg IV 400 MG/200 ML BAG IV ONE (00:49)
[2025-02-04] MEDS ORDERED: NA CHLORIDE 0.9% 1,000 ML ONE ×3 (00:49→03:05)
[2025-02-04 01:05] LABS: Absolute Basophils 0.1 K/uL (0-0.5); Absolute Eosinophils 0.8 K/uL (0-0.5); Absolute Lymphocytes (CBC) 1.1 K/uL (0.7-4.9); Absolute Monocytes 1.1 K/uL (0.1-1.3); Absolute Neutrophil 8.9 K/uL (1.8-8.0); Basophils % 0.5 % (0-1.3); Eosinophils % 6.8 % (0-4.4); Hematocrit 49.1 % (39.6-49.0); Hemoglobin 16.6 g/dL (13.6-17.9); Lymphocytes % 9.6 % (15.3-44.8); MCH 26.9 pg (27.0-35.0); MCHC 33.9 g/dL (32.0-36.0); MCV 79.4 fL (80-100); MPV 8.1 fL (7.6-11.3); Monocytes % 8.9 % (3.3-12.3); Neutrophils % 74.2 % (41.7-73.7); Nucleated Red Blood Cells % 0.2 % (0-0); Platelets 369 thou/uL (152-406); RBC Red Blood Cell Count 6.18 M/uL (4.33-5.43); Red Cell Distribution Width 14.6 % (12.1-15.2)
[2025-02-04 01:25] LABS: Specific Gravity 1.023 (1.005-1.030); Sqamous Epithelial None Seen /HPF (None Seen); Urine Bacteria None Seen /HPF (<20); Urine Bilirubin NEGATIVE (Negative); Urine Blood Negative (Negative); Urine Clarity Turbid (Clear); Urine Color Yellow (Yellow); Urine Crystals Unidentified Few /HPF (None Seen); Urine Culture Reflex Order NOT NEEDED; Urine Glucose NEGATIVE (Negative); Urine Ketones 1+ (Negative); Urine Microscopic Reflex YN ORDER UMIC; Urine Mucus Slight /HPF (None Seen); Urine Nitrite NEGATIVE (Negative); Urine Protein 1+ (Negative); Urine RBC <5 /HPF (None Seen); Urine Urobilinogen Normal (Normal); Urine WBC <5 /HPF (<5); Urine pH 5.5 (5.0-7.0)
[2025-02-04 01:40] LABS: Albumin 3.4 g/dL (3.4-5.0); Albumin/Globulin Ratio 0.9 (1.1-1.8); Anion Gap 10.7 mEq/L (5.0-15.0); Bilirubin Total 0.8 mg/dL (0.2-1.0); Globulin 3.7 g/dL (2.3-3.5); Potassium 2.7 mEq/L (3.5-5.1); Protein, Total 7.1 g/dL (6.4-8.2)
[2025-02-04] MEDS ORDERED: MORPHINE 2 MG/ML SYR ONE (02:07)
[2025-02-04] MEDS ORDERED: PROMETHAZINE INJ 25 MG/ML AMP ONE (02:09)
--- NOTE | 2025-02-04 02:40 | ER ---
Nurse's Notes [facility] Name: Sumeet Reynoso Age: 49 yrs Sex: Male : 1975 Arrival Date: 02/03/2025 Time: 22:30 Bed 15 Private MD: Diagnosis: Abdominal pain, Generalized;Nausea;Hypokalemia;Syncope Near;Diarrhea, unspecified;Diverticulitis of large intestine without perforation or abscess without bleeding Presentation: 02/03 22:47 Chief complaint: Patient states: diarrhea and abdominal pain for the last three to four cp4 days. Coronavirus screen: Client denies travel out of the [place] in the last 14 days. At this time, the client does not indicate any symptoms associated with coronavirus-19. Ebola Screen: Patient negative for fever greater than or equal to 101.5 degrees Fahrenheit, and additional compatible Ebola Virus Disease symptoms Patient denies exposure to infectious person. Patient denies travel to an Ebola-affected area in the 21 days before illness onset. No symptoms or risks identified at this time. Initial Sepsis Screen: Does the patient meet any 2 criteria? HR > 90 bpm. No. Patient's initial sepsis screen is negative. Does the patient have a suspected source of infection? No. Patient's initial sepsis screen is negative. Risk Assessment: Do you want to hurt yourself or someone else? Patient reports no desire to harm self or others. Onset of symptoms was January 30, 2025. 22:47 Method Of Arrival: Ambulatory cp4 22:47 Acuity: DONELL 3 cp4 Triage Assessment: 22:50 General: Appears in no apparent distress. uncomfortable, Behavior is calm, cooperative, cp4 appropriate for age. Pain: Complains of pain in abdomen Pain does not radiate. Pain currently is 8 out of 10 on a pain scale. GI: Abdomen is round non-distended, Bowel sounds present X 4 quads. Abd is soft and non tender X 4 quads. Historical: - Allergies: 22:50 No Known Allergies; cp4 - PMHx: 22:50 GERD; Hypertension; cp4 - Immunization history:: Adult Immunizations up to date. - Infectious Disease History:: Denies. - Social history:: Smoking status: Smoking status: Patient denies any tobacco usage or history of. Screenin/22 03:53 [facility] ED Fall Risk Assessment (Adult) History of falling in the last 3 months, cp4 including since admission No falls in past 3 months (0 pts) Confusion or Disorientation No (0 pts) Intoxicated or Sedated No (0 pts) Impaired Gait No (0 pts) Mobility Assist Device Used No (0 pt) Altered Elimination No (0 pt) Score/Fall Risk Level 0 - 2 = Low Risk Oriented to surroundings, Maintained a safe environment, Assessed \T\ reinforced patient's understanding of fall precautions, Hourly rounding (assess needs \T\ fall precautionary measures) done. Abuse screen: Denies threats or abuse. Denies injuries from another. Nutritional screening: No deficits noted. Tuberculosis screening: No symptoms or risk factors identified. Assessment: 03:53 General: Appears in no apparent distress. uncomfortable, Behavior is calm, cooperative, cp4 appropriate for age. Pain: Complains of pain in abdomen Pain does not radiate. Pain currently is 4 out of 10 on a pain scale. Neuro: Level of Consciousness is awake, alert, obeys commands, Oriented to person, place, time, situation. Cardiovascular: Patient's skin is warm and dry. Rhythm is sinus rhythm. Respiratory: Airway is patent Respiratory effort is even, unlabored. GI: Abdomen is round non-distended, Bowel sounds present X 4 quads. Abd is soft and non tender X 4 quads. : No signs and/or symptoms were reported regarding the genitourinary system. EENT: No signs and/or symptoms were reported regarding the EENT system. Derm: No signs and/or symptoms reported regarding the dermatologic system. Musculoskeletal: No signs and/or symptoms reported regarding the musculoskeletal system. Vital Signs: 02/03 22:47 BP 133 / 84; Pulse 96; Resp 18; Temp 97.8; Pulse Ox 99% ; Weight 92.53 kg; Height 5 ft. cp4 9 in. ; Pain 8/10; 02/04 00:30 BP 120 / 83; Pulse 99; Resp 18; Pulse Ox 97% ; cp4 01:30 BP 117 / 73; Pulse 88; Resp 18; Pulse Ox 95% ; cp4 02:42 BP 103 / 70; Pulse 81; Resp 18; Pulse Ox 97% ; cp4 03:52 BP 118 / 71; Pulse 89; Resp 18; Pulse Ox 99% on 2 lpm NC; cp4 04:58 BP 111 / 73; Pulse 89; Resp 18; Pulse Ox 99% on 2 lpm NC; cp4 02/03 22:47 Body Mass Index 30.13 (92.53 kg, 175.26 cm) cp4 02/03 22:47 Pain Scale: Adult cp4 ED Course: 02/03 22:32 Patient arrived in ED. jj6 22:50 Triage completed. cp4 22:50 Arm band placed on right wrist. Patient placed in waiting room. cp4 22:51 Bertram Betancourt MD is Attending Physician. boris 02/04 02:01 Nasrin Lal is Primary Nurse. cp4 02:38 Otto Hunt MD is Hospitalizing Provider. [facility] 02:48 CT Head C Spine In Process Unspecified. EDMS 02:48 CT Chest, Abdomen, Pelvis - W/Contrast In Process Unspecified. EDMS 03:53 Bed in low position. Call light in reach. Side rails up X2. cp4 03:53 No provider procedures requiring assistance completed. Inserted saline lock: 22 gauge cp4 in right antecubital area, using aseptic technique. Blood collected. Flushed with 10 mL NS. 05:03 Otto Hunt MD is Hospitalizing Provider. boris 09:34 Provided Education on: need for admission. ap3 09:34 Patient admitted, IV remains in place. ap3 Administered Medications: 00:50 Drug: Famotidine IVP 20 mg IVP once; dilute with 10 mL 0.9% NaCl; give over 2 minutes cp4 Route: IVP; Site: right antecubital; 02:53 Follow up: Response: No adverse reaction cp4 00:50 Drug: Ondansetron IVP 4 mg IVP once; over 2 minutes Route: IVP; Site: right antecubital;cp4 02:54 Follow up: Response: No adverse reaction cp4 00:50 Drug: morphine IVP or IV 4 mg IVP once over 4 mins Route: IVP; Infused Over: 4 mins; cp4 Site: right antecubital; 02:54 Follow up: Response: No adverse reaction cp4 00:50 Drug: NS 0.9% IV 1000 ml IV at 1 bolus Per protocol; to be given as a bolus over 60 cp4 minutes Route: IV; Rate: 1 bolus; Site: right antecubital; 02:53 Follow up: IV Status: Completed infusion cp4 01:00 Drug: Ciprofloxacin IVPB 400 mg 200 ml IVPB once over 60 mins Volume: 200 ml; Route: cp4 IVPB; Infused Over: 60 mins; Site: right antecubital; 02:23 Follow up: IV Status: Completed infusion cp4 02:23 Drug: metroNIDAZOLE IVPB 500 mg 100 ml IVPB at 200 ml/hr once over 30 mins Volume: 100 cp4 ml; Route: IVPB; Rate: 200 ml/hr; Infused Over: 30 mins; Site: left antecubital; 03:43 Follow up: Response: No adverse reaction; IV Status: Completed infusion cp4 02:23 Drug: morphine IVP or IV 2 mg IVP once over 4 mins Route: IVP; Infused Over: 4 mins; cp4 Site: right antecubital; 02:50 Follow up: Response: No adverse reaction cp4 02:23 Drug: Promethazine IVP 12.5 mg IVP once Route: IVP; Site: right antecubital; cp4 02:50 Follow up: Response: No adverse reaction cp4 02:24 Drug: NS 0.9% IV 1000 ml IV at 1000 ml once; to be given as a bolus over 60 minutes cp4 Route: IV; Rate: 1000 ml; Site: right antecubital; 03:43 Follow up: IV Status: Completed infusion cp4 03:43 Drug: Potassium PO Effervescent Tablet 25 mEq PO once; dissolve in 4 ounces of water or cp4 juice Route: PO; 06:36 Follow up: Response: No adverse reaction cp4 03:43 Drug: Potassium Chloride IV 20 mEq IV at per protocol once; administer over 1 hours cp4 Route: IV; Rate: per protocol; Site: right antecubital; 06:36 Follow up: IV Status: Completed infusion cp4 06:37 Drug: NS 0.9% with KCl IV 20 mEq/L 1000 ml IV at 500 ml/hr continuous Route: IV; Rate: cp4 500 ml/hr; Site: right antecubital; 13:12 Follow up: IV Status: Infusion continued upon admission me1 07:14 Not Given (Freever orderr): potassium [id number] meq IV at per protocol once; ap3 administer over 1-2 hours 07:57 Drug: Rocephin - Rocephin (cefTRIAXone) IVPB 2 grams IVPB once over 30 mins; (mix in ap3 100 mL NS) Route: IVPB; Infused Over: 30 mins; Site: right antecubital; 09:33 Follow up: IV Status: Completed infusion ap3 Medication: 03:53 VIS not applicable for this client. cp4 Outcome: 02:40 Decision to Hospitalize by Provider. boris 05:05 Decision to Hospitalize by Provider. boris 09:34 Admitted to ER Hold. Please see [facility] for further documentation. ap3 09:34 Condition: good 09:34 Instructed on the need for admit, 13:18 Admitted to Med/surg accompanied by tech, via stretcher, room 213, with chart, Report me1 called to faxed, receipt confirmed with the charge nurse. 13:18 Condition: stable 13:18 Instructed on the need for admit, 14:01 Patient left the ED. me1 Signatures: Dispatcher [employer] Bertram Tovar MD MD cha Prokisch, Amanda RN RN ap3 Melyssa Hauser6 Olga Stewart RN RN me1 Nasrin Lal cp4
--- NOTE | 2025-02-04 02:40 | EDPHYS ---
Physician Documentation [facility] Name: Sumeet Reynoso Age: 49 yrs Sex: Male : 1975 Arrival Date: 02/03/2025 Time: 22:30 Bed 15 Private MD: ED Physician Bertram Betancourt HPI: 02/04 01:27 This 49 yrs old Male presents to ER via Ambulatory with complaints of boris Diarrhea, Abdominal Pain. 01:27 The patient presents to the emergency department with nausea, diarrhea, abdominal pain, boris described as crampy, and radiates to the back. Onset: The symptoms/episode began/occurred 4 day(s) ago. Possible causes: unknown, bad food exposure, flare up of bowel problem. The symptoms are aggravated by nothing. The symptoms are alleviated by nothing. Associated signs and symptoms: The patient has no apparent associated signs or symptoms. Severity of symptoms: At their worst the symptoms were moderate in the emergency department the symptoms have improved. The patient has not experienced similar symptoms in the past. Historical: - Allergies: 02/03 22:50 No Known Allergies; cp4 - PMHx: 22:50 GERD; Hypertension; cp4 - Immunization history:: Adult Immunizations up to date. - Infectious Disease History:: Denies. - Social history:: Smoking status: Smoking status: Patient denies any tobacco usage or history of. ROS: 02/04 01:29 Constitutional: Negative for fever, chills, and weight loss, Eyes: Negative for injury, boris pain, redness, and discharge, ENT: Negative for injury, pain, and discharge, Neck: Negative for injury, pain, and swelling, Cardiovascular: Negative for chest pain, palpitations, and edema, Respiratory: Negative for shortness of breath, cough, wheezing, and pleuritic chest pain, Back: Negative for injury and pain, : Negative for injury, bleeding, discharge, and swelling, MS/Extremity: Negative for injury and deformity, Skin: Negative for injury, rash, and discoloration, Neuro: Negative for headache, weakness, numbness, tingling, and seizure, Psych: Negative for depression, anxiety, suicide ideation, homicidal ideation, and hallucinations, Allergy/Immunology: Negative for hives, rash, and allergies, Endocrine: Negative for neck swelling, polydipsia, polyuria, polyphagia, and marked weight changes, Hematologic/Lymphatic: Negative for swollen nodes, abnormal bleeding, and unusual bruising, Abdomen/GI: Positive for abdominal pain, nausea, diarrhea, abdominal cramps, of the right upper quadrant and left upper quadrant, Exam: 01:29 Constitutional: This is a well developed, well nourished patient who is awake, alert, boris and in no acute distress. Head/Face: Normocephalic, atraumatic. Eyes: Pupils equal round and reactive to light, extra-ocular motions intact. Lids and lashes normal. Conjunctiva and sclera are non-icteric and not injected. Cornea within normal limits. Periorbital areas with no swelling, redness, or edema. ENT: Nares patent. No nasal discharge, no septal abnormalities noted. Tympanic membranes are normal and external auditory canals are clear. Oropharynx with no redness, swelling, or masses, exudates, or evidence of obstruction, uvula midline. Mucous membranes moist. Neck: Trachea midline, no thyromegaly or masses palpated, and no cervical lymphadenopathy. Supple, full range of motion without nuchal rigidity, or vertebral point tenderness. No Meningismus. Chest/axilla: Normal chest wall appearance and motion. Nontender with no deformity. No lesions are appreciated. Cardiovascular: Regular rate and rhythm with a normal S1 and S2. No gallops, murmurs, or rubs. Normal PMI, no JVD. No pulse deficits. Respiratory: Lungs have equal breath sounds bilaterally, clear to auscultation and percussion. No rales, rhonchi or wheezes noted. No increased work of breathing, no retractions or nasal flaring. Back: No spinal tenderness. No costovertebral tenderness. Full range of motion. Male : Normal genitalia with no discharge or lesions. Skin: Warm, dry with normal turgor. Normal color with no rashes, no lesions, and no evidence of cellulitis. MS/ Extremity: Pulses equal, no cyanosis. Neurovascular intact. Full, normal range of motion., bilateral aka Neuro: Awake and alert, GCS 15, oriented to person, place, time, and situation. Cranial nerves II-XII grossly intact. Motor strength 5/5 in all extremities. Sensory grossly intact. Cerebellar exam normal. Normal gait. Psych: Awake, alert, with orientation to person, place and time. Behavior, mood, and affect are within normal limits. 01:29 Abdomen/GI: Inspection: abdomen appears normal, Bowel sounds: normal, Palpation: mild abdominal tenderness, in the right upper quadrant and left upper quadrant, Liver: no appreciated palpable abnormalities, Hernia: not appreciated, 02:24 ECG was reviewed by the Attending Physician. [facility] [place] 02:25 ECG was reviewed by the Attending Physician. [facility] [place] 05:21 ECG was reviewed by the Attending Physician. [facility] [place] Vital Signs: 02/03 22:47 BP 133 / 84; Pulse 96; Resp 18; Temp 97.8; Pulse Ox 99% ; Weight 92.53 kg; Height 5 ft. cp4 9 in. ; Pain 8/10; 02/04 00:30 BP 120 / 83; Pulse 99; Resp 18; Pulse Ox 97% ; cp4 01:30 BP 117 / 73; Pulse 88; Resp 18; Pulse Ox 95% ; cp4 02:42 BP 103 / 70; Pulse 81; Resp 18; Pulse Ox 97% ; cp4 03:52 BP 118 / 71; Pulse 89; Resp 18; Pulse Ox 99% on 2 lpm NC; cp4 04:58 BP 111 / 73; Pulse 89; Resp 18; Pulse Ox 99% on 2 lpm NC; cp4 02/03 22:47 Body Mass Index 30.13 (92.53 kg, 175.26 cm) cp4 02/03 22:47 Pain Scale: Adult cp4 MDM: 02/03 22:51 Medical Screening Exam initiated [facility] [place] 02/04 01:32 Differential diagnosis: Nonspecific abd pain, gastritis, cholecystitis, pancreatitis, boris appendicitis, diverticulitis, viral gastroenteritis, gastroenteritis, appendicitis, bowel obstruction, coronary artery disease, cholecystitis, Cholelithiasis, diverticulitis, gastritis, gastroesophageal reflux disease, GI Bleed, Hepatitis, myocardia ischemia or infarction, non-specific abd pain. Data reviewed: vital signs, nurses notes, lab test result(s), radiologic studies. Consideration of Admission/Observation Escalation of care including admission/observation considered. Independent interpretation of the following test(s) in the Emergency Department CT Scan: My interpretation is CT ABD PEL. Test considered but Not performed: Ultrasound NO ABD USG. Historians other than the Patient: Spouse/Significant Other: . Care significantly affected by the following chronic conditions: Obesity, GERD. Counseling: I had a detailed discussion with the patient and/or guardian regarding the historical points, exam findings, and any diagnostic results supporting the discharge/admit diagnosis, lab results, radiology results, the need for outpatient follow up, for definitive care, a family practitioner, a side piece coverer. 02/03 22:54 Order name: CBC with Diff; Complete Time: 01:26 [facility] [place] 02/03 22:54 Order name: CMP; Complete Time: 01:51 [facility] [place] 02/03 22:54 Order name: Lipase; Complete Time: 01:51 [facility] [place] 02/03 22:54 Order name: Urinalysis w/ reflexes; Complete Time: 01:26 [facility] [place] 02/03 22:54 Order name: Fecal Leukocyte Stain [facility] [place] 02/03 22:54 Order name: Stool Culture [facility] [place] 02/04 05:46 Order name: Urinalysis w/ reflexes [facility] 02/04 05:47 Order name: CBC with Automated Diff [facility] 02/04 05:47 Order name: CBC with Automated Diff [facility] 02/04 05:47 Order name: Comprehensive Metabolic Panel [facility] 02/04 05:47 Order name: Comprehensive Metabolic Panel [facility] 02/04 02:26 Order name: CT Head C Spine [facility] [place] 02/04 02:27 Order name: CT Chest, Abdomen, Pelvis - W/Contrast [facility] [place] 02/03 22:54 Order name: IV Saline Lock; Complete Time: 00:45 [facility] [place] 02/03 22:54 Order name: Labs collected and sent; Complete Time: 00:45 [facility] [place] 02/04 01:52 Order name: PO challenge: JUICE; Complete Time: 03:42 [facility] [place] EC:25 Rate is 78 beats/min. Rhythm is regular. QRS [place] is Normal. HI interval is normal. QRS boris interval is normal. QT interval is normal. No Q waves. T waves are Normal. No ST changes noted. Clinical impression: Normal ECG and No evidence of ischemia. Interpreted by me. Reviewed by me. 05:21 Rate is 88 beats/min. Rhythm is irregularly irregular. QRS [place] is Normal. HI interval boris is normal. QRS interval is normal. QT interval is normal. No Q waves. T waves are Normal. No ST changes noted. Clinical impression: Atrial Fibrillation. Interpreted by me. Reviewed by me. Administered Medications: 00:50 Drug: Famotidine IVP 20 mg IVP once; dilute with 10 mL 0.9% NaCl; give over 2 minutes cp4 Route: IVP; Site: right antecubital; 02:53 Follow up: Response: No adverse reaction cp4 00:50 Drug: Ondansetron IVP 4 mg IVP once; over 2 minutes Route: IVP; Site: right antecubital;cp4 02:54 Follow up: Response: No adverse reaction cp4 00:50 Drug: morphine IVP or IV 4 mg IVP once over 4 mins Route: IVP; Infused Over: 4 mins; cp4 Site: right antecubital; 02:54 Follow up: Response: No adverse reaction cp4 00:50 Drug: NS 0.9% IV 1000 ml IV at 1 bolus Per protocol; to be given as a bolus over 60 cp4 minutes Route: IV; Rate: 1 bolus; Site: right antecubital; 02:53 Follow up: IV Status: Completed infusion cp4 01:00 Drug: Ciprofloxacin IVPB 400 mg 200 ml IVPB once over 60 mins Volume: 200 ml; Route: cp4 IVPB; Infused Over: 60 mins; Site: right antecubital; 02:23 Follow up: IV Status: Completed infusion cp4 02:23 Drug: metroNIDAZOLE IVPB 500 mg 100 ml IVPB at 200 ml/hr once over 30 mins Volume: 100 cp4 ml; Route: IVPB; Rate: 200 ml/hr; Infused Over: 30 mins; Site: left antecubital; 03:43 Follow up: Response: No adverse reaction; IV Status: Completed infusion cp4 02:23 Drug: morphine IVP or IV 2 mg IVP once over 4 mins Route: IVP; Infused Over: 4 mins; cp4 Site: right antecubital; 02:50 Follow up: Response: No adverse reaction cp4 02:23 Drug: Promethazine IVP 12.5 mg IVP once Route: IVP; Site: right antecubital; cp4 02:50 Follow up: Response: No adverse reaction cp4 02:24 Drug: NS 0.9% IV 1000 ml IV at 1000 ml once; to be given as a bolus over 60 minutes cp4 Route: IV; Rate: 1000 ml; Site: right antecubital; 03:43 Follow up: IV Status: Completed infusion cp4 03:43 Drug: Potassium PO Effervescent Tablet 25 mEq PO once; dissolve in 4 ounces of water or cp4 juice Route: PO; 06:36 Follow up: Response: No adverse reaction cp4 03:43 Drug: Potassium Chloride IV 20 mEq IV at per protocol once; administer over 1 hours cp4 Route: IV; Rate: per protocol; Site: right antecubital; 06:36 Follow up: IV Status: Completed infusion cp4 06:37 Drug: NS 0.9% with KCl IV 20 mEq/L 1000 ml IV at 500 ml/hr continuous Route: IV; Rate: cp4 500 ml/hr; Site: right antecubital; 13:12 Follow up: IV Status: Infusion continued upon admission me1 07:14 Not Given (Flimper orderr): potassium [id number] meq IV at per protocol once; ap3 administer over 1-2 hours 07:57 Drug: Rocephin - Rocephin (cefTRIAXone) IVPB 2 grams IVPB once over 30 mins; (mix in ap3 100 mL NS) Route: IVPB; Infused Over: 30 mins; Site: right antecubital; 09:33 Follow up: IV Status: Completed infusion ap3 Disposition Summary: 02/04/25 05:05 Hospitalization Ordered Notes: Hospitalization Status: Inpatient Admission(02/04/25 05:05) boris Provider: Otto Hunt(02/04/25 05:05) boris Condition: Fair(02/04/25 05:05) boris Problem: new(02/04/25 05:05) boris Symptoms: have improved(02/04/25 05:05) boris Bed/Room Type: Standard(02/04/25 05:05) boris Location: Telemetry/MedSurg (Inpatient)(02/04/25 13:05) sp Room Assignment: 213(02/04/25 13:05) sp Diagnosis - Abdominal pain, Generalized(02/04/25 05:05) boris - Nausea boris - Hypokalemia(02/04/25 05:05) boris - Syncope Near(02/04/25 05:05) boris - Diarrhea, unspecified(02/04/25 05:05) boris - Diverticulitis of large intestine without perforation or abscess without bleeding boris Forms: - Medication Reconciliation Form boris - SBAR form boris - Leadership Thank You Letter boris Signatures: Dispatcher [employer] Bertram Tovar MD MD cha Pinkerton, Shawna sp Calderon, Audri, RN RN aa5 Vonda Gutiérrez RN RN ap3 Nasrin Lal cp4 Olga Stewart RN me1 Corrections: (The following items were deleted from the chart) 02/03 22:55 22:54 CBC+H.LAB.BRZ ordered. [facility] 22:55 22:54 COMPREHENSIVE METABOLIC PANEL+C.LAB.BRZ ordered. [facility] 22:55 22:55 LIPASE+C.LAB.BRZ ordered. [facility] 22:55 22:55 Urinalysis+U.LAB.BRZ ordered. [facility] 22:55 22:55 Fecal Leukocyte Stain+BA.LAB.BRZ ordered. [facility] 22:55 22:55 Stool Culture+BA.LAB.BRZ ordered. [facility] 02/04 02:26 02:24 Rate is 85 beats/min. Rhythm is regular. QRS [place] is Normal. HI interval is boris normal. QRS interval is normal. QT interval is normal. No Q waves. T waves are Normal. No ST changes noted. Clinical impression: NSR w/ Non-specific ST/T Changes and No evidence of ischemia. Interpreted by me. Reviewed by me. [facility] [place] 02:27 02:27 Head C Spine MPR Wo Con+CT.RAD.BRZ ordered. [facility] 02:34 02/03 22:55 Abdomen Pelvis W Con+CT.RAD.BRZ ordered. [facility] 02/04 02:43 02:40 Inpatient Admission boris boris 02:43 02:40 Otto Hunt boris boris 02:43 02:40 Telemetry/MedSurg (Inpatient) boris boris 02:43 02:40 Fair boris boris 02:43 02:40 new boris boris 02:43 02:40 have improved boris boris 02:43 02:40 Standard boris boris 02:43 02:40 boris boris 02:43 02:40 Abdominal pain, Generalized boris boris 02:43 02:40 Hypokalemia boris boris 02:43 02:40 Weakness boris boris 02:43 02:40 Syncope Near boris boris 02:43 02:40 Diarrhea, unspecified boris boris 02:43 02:40 Dehydration boris boris 10:14 05:05 Telemetry/MedSurg (Inpatient) boris aa5 10:14 05:05 boris aa5 13:05 10:14 BR ER HOLD aa5 sp 13:05 10:14 ERHOLD- aa5 sp
[2025-02-04] MEDS ORDERED: POTASSIUM 25 MEQ EFFERV TAB ONE (02:55)
[2025-02-04] MEDS ORDERED: NS KCL 20MEQ 1,000 ML IV ONE (02:56)
[2025-02-04] MEDS ORDERED: KCL 20 MEQ/100 mL IVPB 100 ML IV ONE (02:56)
--- NOTE | 2025-02-04 05:40 | P.HP ---
Certification for Inpatient Patient admitted to: Inpatient With expected LOS: >2 Midnights Practitioner: I am a practitioner with admitting privileges, knowledge of patient current condition, hospital course, and medical plan of care. Services: Services provided to patient in accordance with Admission requirements found in Title 42 Section 412.3 of the Code of Federal Regulations Patient History Date of Service: 02/04/25 Reason for admission: Abdominal pain History of Present Illness: 49 yrs old Male with past medical history of GERD, hypertension, patient was brought to ER with nausea , diarrhea and abdominal pain, described as crampy, and radiates to the back started 4 days ago. Patient denies fever or chills. No chest pain or shortness of breath. No sick contacts. Patient was assessed in the ER and is admitted for further management of possible gastroenteritis and hypokalemia Allergies No Known Allergies Allergy (Unverified 02/09/18 12:35) Home medications list reviewed: Yes Home Medications: Aspirin Chewable [Aspirin Chewable*] 81 mg PO DAILY 02/04/25 Candesartan Cilexetil 32 mg PO DAILY 02/04/25 Chlorthalidone 25 mg PO DAILY 02/04/25 Dexlansoprazole [Dexlansoprazole Dr] 60 mg PO DAILY 02/04/25 Testosterone Enanthate 0.5 ml SQ EVERY 3RD DAY 02/04/25 - Past Medical/Surgical History Past Medical History: Reviewed- Non-Contributory - Social History Smoking Status: Never smoker Review of Systems 10-point ROS is otherwise unremarkable Physical Examination - Vital Signs Temperature: 97.8 F Blood Pressure: 133/84 Pulse: 92 Respirations: 18 Pulse Ox (%): 94 - Physical Exam General: Alert, Oriented x3, Cooperative HEENT: Atraumatic, Normocephalic Neck: Supple, JVD not distended Respiratory: Clear to auscultation bilaterally Cardiovascular: Regular rate/rhythm, Normal S1 S2 Capillary refill: <2 Seconds Gastrointestinal: Soft and benign, W/out hepatosplenomegaly Musculoskeletal: No clubbing, No swelling Neurological: Normal strength at 5/5 x4 extr, Cranial nerves 3-12 intact Lymphatics: No axilla or inguinal lymphadenopathy - Studies Laboratory Data (last 24 hrs) 02/04/25 02/04/25 00:41 00:41 WBC 12.00 H Hgb 16.6 Hct 49.1 H Plt Count 369 Sodium 138 Potassium 2.7 L BUN 13 Creatinine 1.30 Glucose 96 Total Bilirubin 0.8 AST 11 L ALT 24 Alkaline Phosphatase 65 Lipase 34 Assessment and Plan - Plan Acute gastroenteritis Hypokalemia Dehydration Hypertension GERD Started on IV antibiotic Monitor closely Will get a CT of the abdomen pelvis Electrolytes monitor and replace accordingly IV hydration Continue home medications and titrate as needed GI/DVT prophylaxis Advanced directive full code Discharge Plan: Home Plan to discharge in: 48 Hours - Advance Directives Does patient have a Living Will: No Does patient have a Durable POA for Healthcare: No - Code Status/Comfort Care Code Status: Full Code Time Spent Managing Pts Care (In Minutes): 54
[2025-02-04] MEDS ORDERED: ACETAMINOPHEN 325 MG TABLET PO PRN (05:41)
[2025-02-04] MEDS ORDERED: ONDANSETRON 4 MG/2 ML VIAL IV PRN (05:41)
[2025-02-04] MEDS ORDERED: NS KCL 40MEQ 40 MEQ/1,000 ML BAG IV SCH (06:00)
--- NOTE | 2025-02-04 06:33 | RAD REPORT ---
CT HEAD AND CERVICAL SPINE WITHOUT CONTRAST INDICATION: Dizziness. Syncope. Trauma.. COMPARISON: None TECHNIQUE: CT images of the head and cervical spine were obtained without contrast. Multiplanar refor mats were provided. Dose lowering techniques such as automated exposure control, iterative reconstruction, and mA and/or kV adjustment for patient size was utilized for this examination. FINDINGS: CT HEAD: PARENCHYMA: No acute arterial territory infarct or hemorrhage. No mass effect or midline shift. VENTRICLES: Normal in size for patient's age. EXTRA-AXIAL: No focal collection. Patent basilar cisterns. ORBITS: Unremarkable. BONES: No acute finding. PARANASAL SINUSES: clear. MASTOIDS/MIDDLE EARS: Clear. SOFT TISSUES: No acute findings. OTHER: None. CT CERVICAL SPINE: ALIGNMENT: Straightening of normal cervical lordosis may be positional. No spondylolisthesis. BONES: No acute fractures. No compression deformity. SPONDYLOSIS: Unremarkable. POSTERIOR FOSSA: Unremarkable. SOFT TISSUES: Unremarkable. LUNG APICES: Clear. OTHER: None. IMPRESSION: 1. No acute intracranial abnormality. 2. No acute findings in cervical spine. Electronically signed by: Cesilia Felix MD 02/04/2025 05:58 AM T Due to temporary technical issues with the [employer]ACS/[employer] reporting system, reports are being anika d by the in-house radiologist without review as a courtesy to ensure prompt reporting the interpreting radiologist is fully responsible for the content of the report. Transcribed Date/Time: 02/04/2025 6:33 AM
--- NOTE | 2025-02-04 06:33 | RAD REPORT ---
CT CHEST ABDOMEN PELVIS WITH IV CONTRAST CLINICAL INDICATIONS: Abdominal pain. Distention. COMPARISON: None TECHNIQUE: CT images of the chest, abdomen and pelvis were obtained following administration of intra venous contrast. Multiplanar reformats were provided. Dose lowering techniques such as automated exposure control, iterative reconstruction, and mA and/or kV adjustment for patient size was utilized for this examination. CHEST FINDINGS: LOWER NECK: Unremarkable. AIRWAYS: Trachea and mainstem bronchi are patent. LUNGS/PLEURA: Mild dependent changes at bilateral lower lobes. No focal air space consolidation. No d iscrete mass or nodules. No pleural effusions or pneumothorax. VASCULATURE: No evidence of thoracic aortic aneurysm. MEDIASTINUM/NODES: No pathologic adenopathy. HEART: Normal heart size. No pericardial effusion. CHEST WALL: Unremarkable. BONES: Unremarkable No compression deformity. ABDOMEN/PELVIS FINDINGS: LIVER: Unremarkable. BILIARY: Unremarkable. PANCREAS: Unremarkable. SPLEEN: Unremarkable. ADRENALS: Unremarkable. KIDNEYS/URETERS: 4 mm calculus in right kidney. No hydroureteronephrosis. No suspicious lesion STOMACH: Small hiatal hernia. BOWEL: Colonic diverticulosis without acute diverticulitis. Fluid in colon and multiple small bowel l oops, suggesting diarrhea. Mild circumferential wall thickening of proximal sigmoid colon with slight prominence of pericolonic vascularity, suspicious for early or malalignment diverticulitis. APPENDIX: Appendix is not visualized. No focal inflammation in right lower quadrant to suggest acute appendicitis. MESENTERY/PERITONEUM: Unremarkable. RETROPERITONEUM: No adenopathy. URINARY BLADDER: Unremarkable. REPRODUCTIVE: Prostate hypertrophy. VASCULAR: Unremarkable. ABDOMINAL/PELVIC WALL: Unremarkable. 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 No acute abnormality. No c ompression deformity, nor osteolytic or sclerotic lesion. IMPRESSION: 1. Findings are suspicious for early or mild diverticulitis of proximal sigmoid colon. 2. Nonobstructive right nephrolithiasis. 3. No active pulmonary process. Electronically signed by: Cesilia Felix MD 02/04/2025 06:06 AM CDT Due to temporary technical issues with the PACS/[employer] reporting system, reports are being anika d by the in-house radiologist without review as a courtesy to ensure prompt reporting the interpreting radiologist is fully responsible for the content of the report. Transcribed Date/Time: 02/04/2025 6:33 AM
[2025-02-04 07:06] VITALS: BMI 30.1
[2025-02-04] MEDS ORDERED: NA CHLORIDE 0.9% 100 ML ONE (07:42)
[2025-02-04] MEDS ORDERED: CEFTRIAXONE 2000 MG/VIAL ONE (07:42)
[2025-02-04] MEDS: NS KCL 40MEQ 40 MEQ/1,000 ML BAG IV SCH (08:00)
[2025-02-04] MEDS: METRONIDAZOLE 500mg IVPB 500 MG/100 ML BAG IV SCH (09:00)
[2025-02-04] MEDS: ENOXAPARIN 40 MG/0.4 ML SQ SCH (09:00)
[2025-02-04] MEDS: CEFTRIAXONE 1,000 MG in NA CHLORIDE 0.9% 50 ML IVPB SCH (09:00)
[2025-02-04 09:50] VITALS: O2SAT 99
[2025-02-04] MEDS ORDERED: ENOXAPARIN 40 MG/0.4 ML SQ ONE (10:30)
[2025-02-04] MEDS ORDERED: LOPERAMIDE HCL 2 MG CAPSULE PO PRN (19:49)
[2025-02-04] MEDS: POTASSIUM CL SA 10 MEQ TAB PO ONE (20:33)
[2025-02-04] MEDS: DIPHENOX/ATROP SULF 1 TAB PO ONE (20:35)
[2025-02-04 23:16] LABS: C.diff Antigen/Toxin Ag neg : Tox neg (NEG : NEG); CDIFF INTERNAL NEG CONTROL White Background (WHITE BKGD); STOOL CONSISTENCY Liquid/Semi-Solid
[2025-02-05] MEDS: METHYLPREDNISOLONE 40 MG INJ IV SCH (01:43)
[2025-02-05 06:23] LABS: Absolute Eosinophils 0.4 K/uL (0-0.5); Absolute Lymphocytes (CBC) 0.6 K/uL (0.7-4.9); Absolute Monocytes 0.2 K/uL (0.1-1.3); Absolute Neutrophil 7.9 K/uL (1.8-8.0); Basophils % 0.2 % (0-1.3); Eosinophils % 4.8 % (0-4.4); Hematocrit 40.3 % (39.6-49.0); Hemoglobin 13.7 g/dL (13.6-17.9); MCV 79.3 fL (80-100); MPV 8.1 fL (7.6-11.3); Monocytes % 2.3 % (3.3-12.3); Neutrophils % 85.7 % (41.7-73.7); Platelets 275 thou/uL (152-406); RBC Red Blood Cell Count 5.09 M/uL (4.33-5.43); Red Cell Distribution Width 14.6 % (12.1-15.2)
[2025-02-05 06:34] LABS: ALT/SGPT 19 U/L (16-61); AST/SGOT < 10 U/L (15-37); Albumin 2.8 g/dL (3.4-5.0); Alkaline Phosphatase 49 U/L (45-117); Anion Gap 7.4 mEq/L (5.0-15.0); BUN Blood Urea Nitrogen 5 mg/dL (7-18); Bicarbonate 26 mEq/L (21-32); Bilirubin Total 0.3 mg/dL (0.2-1.0); Globulin 2.8 g/dL (2.3-3.5); Glomerular Filtration Rate 89 ml/min (=/>90); Glucose Level 109 mg/dL (74-106); Potassium 3.4 mEq/L (3.5-5.1); Protein, Total 5.6 g/dL (6.4-8.2); Sodium Level 140 mEq/L (136-145)
[2025-02-05 08:06] LABS: Blood Morphology Comment NOT SEEN (NOT SEEN); Platelet Estimate ADEQ; White Blood Cell Scan OK (OK)
[2025-02-05] MEDS: POTASSIUM CL SA 10 MEQ TAB PO ONE (08:14)
[2025-02-05 08:16] VITALS: TEMP 97.8
[2025-02-05] MEDS ORDERED: NS KCL 40MEQ 40 MEQ/1,000 ML BAG IV SCH (11:00)
[2025-02-05 12:36] VITALS: BP 115/56
[2025-02-05] MEDS: NA CHLORIDE 0.9% 1,000 ML with POTASSIUM CL 40 MEQ IV SCH (12:50)
--- NOTE | 2025-02-09 08:50 | EKG ---
Test Date: 2025-02-04 Test Time: 02:20:31 [employer] Administrator: MARTÍNEZ MEASUREMENT RESULTS: Intervals: Rate: 78 [place]: 138 QRSD: 88 QT: 388 QTc: 442 [place]: P: 67 [place]: 138 QRS: 88 T: 69 INTERPRETIVE STATEMENTS: Normal sinus rhythm Normal ECG Compared to ECG 09/09/2018 19:59:46 T-wave abnormality no longer present Electronically Signed On 02-09-25 08:41:10 CDT by Augustus Young
== END 2025-02-05 16:10 | disposition home or self-care (01) | DRG 392 ==
LOC: ER 22:30 → ERHOLD 02-04 05:41 → 2ND 02-04 13:23
PROVIDERS: ADMIT Family Medicine; ATTEND Hospitalist
DX: K52.9 Noninfective gastroenteritis and colitis, unspecified (principal); K57.32 Diverticulitis of large intestine without perforation or abscess without bleeding; E87.6 Hypokalemia; E86.0 Dehydration; I10 Essential (primary) hypertension; K21.9 Gastro-esophageal reflux disease without esophagitis; E66.9 Obesity, unspecified; Z68.30 Body mass index [BMI] 30.0-30.9, adult; Z79.82 Long term (current) use of aspirin; Z79.899 Other long term (current) drug therapy
CPT/HCPCS: 36415; 70450; 71260; 72125; 74177; 80048; 80053; 81001; 83690; 84132; 85025; 87045; 87046; 87324; 89055; 93005; 99285; J0696; J0744; J1650; J2270; J2405; J2550; J2919; J3480; J7030; Q9967